=== PATIENT | female | born 1970 | race Caucasian/White ===

== ENCOUNTER 2017-06-19 14:31 | Observation (INO) | payer OTHER ==
--- NOTE | 2017-06-19 14:45 | PDOC ---
History of Present Illness - General History Source: Patient Exam Limitations: No Limitations - History of Present Illness Initial Comments: 06/19/17 15:20 The patient is a 46 year old female with a significant PMH of diabetes, migraines, bulging disc and hernia who presents to the emergency department after a witnessed syncopal episode with associated nausea and two episodes of emesis this morning. The patient reports she has been experiencing confusion, fogginess, and lightheadedness when standing up for the past 7 months. The patient states her PCP told her it may be due to lack of sleep. The patient had a syncopal episode one week ago but did not seek medical evaluation at the time. The patient states she did not sleep last night, but this is usual for her. The patient reports she was walking fine this morning but when she stood up from the chair she felt like "she was stepping on air and collapsed to the ground." The patient sustained a head injury on her forehead and tongue laceration during the syncopal episode. The patient is also complaining of back pain but states this is chronic. The patient denies any alcohol intake. The patient denies chest pain, shortness of breath, and headache. Denies fever, chills, diarrhea and constipation. Denies incontinence, dysuria, frequency, urgency and hematuria. Allergies: NKA Past surgical history: None reported Social history: No reported alcohol, cigarette, or drug use. PCP: Dr. Wilkerson <Adriana Marrero - Last Filed: 06/19/17 17:17> <Avni Caldwell - Last Filed: 06/19/17 18:35> <Justin Braswell - Last Filed: 06/20/17 19:05> - General Chief Complaint: Syncope/Near Syncope Stated Complaint: SYNCOPE Time Seen by Provider: 06/19/17 14:45 Past History <Adriana Marrero - Last Filed: 06/19/17 17:17> <Avni Caldwell - Last Filed: 06/19/17 18:35> - Past Medical History Asthma: No Cancer: No Cardiac Disorders: No Diabetes: Yes (hypoglycemia) Disorders: Yes (POLYCYSTIC OVARY DISEASE) HTN: No Seizures: No Thyroid Disease: No - Surgical History Abdominal Surgery: Yes (UMBILICAL HERNIA REPAIR) Gastric Stapling: Yes (gastric bypass in 2007) GI Surgery: Yes (couple of abdominal surgeries for and hernia repairs) - Reproductive History (#): 5 Para: 3 Polycystic Ovaries: Yes Tubal Ligation: No - Immunization History Immunization Up to Date: Yes - Suicide/Smoking/Psychosocial Hx Smoking Status: No Smoking History: Current every day smoker Have you smoked in the past 12 months: Yes Number of Cigarettes Smoked Daily: 10 Hx Alcohol Use: No Drug/Substance Use Hx: No Hx Substance Use Treatment: No <Justin Braswell - Last Filed: 06/20/17 19:05> - Past Medical History Allergies/Adverse Reactions: Allergies Allergy/AdvReac Type Severity Reaction Status Date / Time No Known Allergies Allergy Verified 06/19/17 14:43 Home Medications: Ambulatory Orders Gabapentin 100 mg PO DAILY 06/19/17 Metformin HCl 500 mg PO DAILY 06/19/17 Acetaminophen/Caffeine/Butalb [Fioricet -] 1 tab PO Q4H PRN 06/20/17 Zolpidem Tartrate [Ambien] 0 mg PO HS 06/20/17 *Physical Exam - Vital Signs Last Vital Signs Temp Pulse Resp BP Pulse Ox 98.7 F 110 H 17 141/91 97 06/19/17 14:43 06/19/17 14:43 06/19/17 14:43 06/19/17 14:43 06/19/17 14:43 - Physical Exam Comments: 06/19/17 15:23 Vitals: Triage vital signs reviewed General Appearance: No acute distress, well nourished, well developed Head: Atraumatic Eyes: Pupils equal reactive round, extraocular movement intact Mouth: (+) Tongue laceration. Neck: Supple; No nuchal rigidity Chest Wall: Nontender Cardiac: Regular rate and rhythm, no murmurs, no rubs, no gallops Lungs: Clear to auscultation bilateral, good air movement bilaterally Abdomen: Soft, nondistended, normal bowel sounds, nontender to palpation Back: (+) Severe low back tenderness. Extremities: (+) 4/5 bilateral lower extremity weakness. No cyanosis, clubbing, or edema Skin: Warm and dry, no rashes or lesions, no rash, no petechiae Neuro: AOX3; Cranial Nerves 2-12 grossly intact, Strength intact to all extremities, Sensation intact to all extremities. Psych: Normal mood, normal affect <Adriana Marrero - Last Filed: 06/19/17 17:17> - Vital Signs Last Vital Signs Temp Pulse Resp BP Pulse Ox 98.2 F 85 18 130/74 99 06/19/17 17:58 06/19/17 17:59 06/19/17 17:58 06/19/17 17:59 06/19/17 17:58 <Avni Caldwell - Last Filed: 06/19/17 18:35> Procedures - Laceration/Wound Repair Left Wound Length: to 2.5 cm (Left Tongue Laceration) Wound Explored: clean, no foreign body present Wound's Depth, Shape: linear Irrigated w/ Saline: Yes Anesthesia: 1% Lidocaine Amount of Anesthetic (ccs): 4 Wound Repaired With: Sutures Suture Size/Type: 5:0, other (Absorbable) Number of Sutures: 4 Layer Closure: Yes <Avni Caldwell - Last Filed: 06/19/17 18:35> Heart Score/ECG Review #1 06/19/17 15:22 EKG performed at [14:56] demonstrates rate of [109], rhythm of [sinus tachycardia], Incomplete right bundle branch block. Inferior infarct, age undetermined. T wave inversion in V3. <Adrinaa Marrero - Last Filed: 06/19/17 17:17> ED Treatment Course - LABORATORY CBC & Chemistry Diagram: 06/19/17 15:00 06/19/17 15:00 - ADDITIONAL ORDERS Additional order review: 06/19/17 15:00 RBC 3.75 MCV 83.8 MCHC 32.5 RDW 22.4 H D MPV 8.4 Neutrophils % 76.9 Lymphocytes % 14.5 D Monocytes % 6.9 Eosinophils % 0.7 Basophils % 1.0 - Medications Given in the ED: ED Medications Discontinued Medications Generic Name Dose Route Start Last Admin Trade Name Freq PRN Reason Stop Dose Admin Sodium Chloride 1,000 ml 06/19/17 14:46 06/19/17 15:07 Normal Saline - IV 06/19/17 14:47 1,000 ml ONCE ONE Administration <Adriana Marrero - Last Filed: 06/19/17 17:17> - LABORATORY CBC & Chemistry Diagram: 06/19/17 15:00 06/19/17 15:00 - ADDITIONAL ORDERS Additional order review: Laboratory Results 06/19/17 06/19/17 06/19/17 15:00 15:00 15:00 Sodium Potassium Chloride Carbon Dioxide Anion Gap BUN Creatinine Creat Clearance w eGFR Random Glucose Calcium Total Bilirubin AST ALT Alkaline Phosphatase Troponin I < 0.02 Total Protein Albumin TSH 6.04 H Free T4 0.96 Alcohol, Quantitative < 5.0 06/19/17 15:00 Sodium 138 Potassium 4.2 Chloride 103 Carbon Dioxide 23 Anion Gap 12 BUN 16 Creatinine 0.7 Creat Clearance w eGFR > 60 Random Glucose 86 Calcium 9.2 Total Bilirubin 0.4 D AST 12 L D ALT 14 D Alkaline Phosphatase 80 Troponin I Total Protein 6.7 Albumin 4.2 TSH Free T4 Alcohol, Quantitative 06/19/17 15:00 RBC 3.75 MCV 83.8 MCHC 32.5 RDW 22.4 H D MPV 8.4 Neutrophils % 76.9 Lymphocytes % 14.5 D Monocytes % 6.9 Eosinophils % 0.7 Basophils % 1.0 - Medications Given in the ED: ED Medications Discontinued Medications Generic Name Dose Route Start Last Admin Trade Name Erikq PRN Reason Stop Dose Admin Lidocaine HCl 15 ml 06/19/17 15:23 06/19/17 18:08 Xylocaine 2% Viscous MM 06/19/17 15:24 15 ml ONCE ONE Administration Sodium Chloride 1,000 ml 06/19/17 14:46 06/19/17 15:07 Normal Saline - IV 06/19/17 14:47 1,000 ml ONCE ONE Administration <Avni Caldwell - Last Filed: 06/19/17 18:35> - LABORATORY CBC & Chemistry Diagram: 06/20/17 07:30 06/20/17 07:30 <Justin Braswell - Last Filed: 06/20/17 19:05> Medical Decision Making - Medical Decision Making 06/19/17 15:23 The patient is a 46 year old female with a significant PMH of diabetes, migraines, bulging disc and hernia who presents to the emergency department after a witnessed syncopal episode with associated nausea and two episodes of emesis this morning. Plan: Labs: CMP, HCG Qual, Troponin, UA CT Scan: HEAD w/o contrast MRI: Lumbar spine MRI w/o contrast Imaging: Lumbar Spine MRI w/o contrast Reported by: Dr. Xiong Reviewed by: Dr. Braswell Impression: A moderate left posterolateral L5-S1 disc herniation is seen which appears mildly increased in size in comparison to a previous MRI study of 2016. There is resultant posterior displacement of the traversing left S1 nerve root. A very small central L4-L5 disc herniation is noted interval change. Interval development of marrow edema is seen within the right L1 and L2 transverse processes with associated contiguous soft tissue edema- ? recent injury/fall. CT evaluation may be considered to evaluate for possible transverse process fractures. 5:17PM Consulted the case with Dr. Quan, Neurosurgery. <Adriana Marrero - Last Filed: 06/19/17 17:17> - Medical Decision Making Syncope versus seizure, patient with large tongue laceration On examination patient with generalized bilateral lower extremity weakness. Has chronic low back pain which she feels is worse since the fall A stat head CT and a stat lumbar spine MRI has been ordered patient taken directly to CT MRI 5 PM case signed out to Dr. Kellogg CT and MRI results pending. Laceration will be sutured by resident MRI findings reviewed with Dr. Quan, No acute intervention needed. Recommends MRI Cervical and thoracic tomorrow. CT Lumbar spine tonight. Re consult if needed 06/19/17 17:25 <Justin Braswell - Last Filed: 06/20/17 19:05> *DC/Admit/Observation/Transfer - Attestations Scribe Attestion: 06/19/17 15:22 Documentation prepared by Adriana Marrero, acting as medical billing and coding specialist for Justin Braswell MD. <Adriana Marrero - Last Filed: 06/19/17 17:17> <Avni Caldwell - Last Filed: 06/19/17 18:35> <Justin Braswell - Last Filed: 06/20/17 19:05> Diagnosis at time of Disposition: Diabetes Syncope Qualifiers: Syncope type: unspecified Qualified Code(s): R55 - Syncope and collapse
[2017-06-19] MEDS ORDERED: SODIUM CHLORIDE 0.9% 1000 ML INFUS.BAG IV ONE (14:46)
[2017-06-19 15:10] LABS: ADD RBC MORPHOLOGY YES; EOS % 0.7 % (0-4.5); HEMATOCRIT 31.4 % (32.4-45.2); HEMOGLOBIN 10.2 GM/dL (10.7-15.3); LYMPH % 14.5 % (8-40); MCH 27.3 pg (25.7-33.7); MCHC 32.5 g/dl (32.0-36.0); MEAN CELL VOLUME 83.8 fl (80-96); MEAN PLT VOLUME 8.4 fl (7.5-11.1); MONO % 6.9 % (3.8-10.2); NEUT % 76.9 % (42.8-82.8); PLATELET COUNT 218 K/MM3 (134-434); RBC 3.75 M/mm3 (3.60-5.2); RDW 22.4 % (11.6-15.6); WHITE BLOOD COUNT 9.7 K/mm3 (4.0-10.0)
[2017-06-19 15:22] VITALS: BMI 23.2
[2017-06-19] MEDS ORDERED: LIDOCAINE VISCOUS 2% ORAL/TOP 100 ML BOTTLE MM ONE (15:23)
[2017-06-19 15:26] LABS: ANISOCYTOSIS 2+
[2017-06-19 15:42] LABS: ALBUMIN 4.2 g/dl (3.4-5.0); ALK PHOS 80 U/L (45-117); ANION GAP 12 (8-16); BILIRUBIN,TOTAL 0.4 mg/dL (0.2-1.0); BLOOD UREA NITROGEN 16 mg/dL (7-18); CALCIUM 9.2 mg/dL (8.5-10.1); CHLORIDE 103 mmol/L (98-107); CO2 23 mmol/L (21-32); CREATININE 0.7 mg/dL (0.55-1.02); GLUCOSE,RANDOM 86 mg/dL (74-106); POTASSIUM 4.2 mmol/L (3.5-5.1); SGOT/AST 12 U/L (15-37); SGPT/ALT 14 U/L (12-78); SODIUM 138 mmol/L (136-145); TOT PROT 6.7 g/dl (6.4-8.2)
[2017-06-19] MEDS ORDERED: LIDOCAINE VISCOUS 2% ORAL/TOP 20 ML UNIT-DOSE CUP ONE (16:57)
--- NOTE | 2017-06-19 19:12 | PDOC ---
*Physical Exam - Vital Signs Last Vital Signs Temp Pulse Resp BP Pulse Ox 98.2 F 85 18 130/74 99 06/19/17 17:58 06/19/17 17:59 06/19/17 17:58 06/19/17 17:59 06/19/17 17:58 <ValdezDanielle Collazo - Last Filed: 06/19/17 19:11> - Vital Signs Last Vital Signs Temp Pulse Resp BP Pulse Ox 98.2 F 85 18 130/74 99 06/19/17 17:58 06/19/17 17:59 06/19/17 17:58 06/19/17 17:59 06/19/17 17:58 <Mabel Ferrell - Last Filed: 06/19/17 20:23> ED Treatment Course - LABORATORY CBC & Chemistry Diagram: 06/19/17 15:00 06/19/17 15:00 - ADDITIONAL ORDERS Additional order review: Laboratory Results 06/19/17 06/19/17 06/19/17 15:00 15:00 15:00 Sodium Potassium Chloride Carbon Dioxide Anion Gap BUN Creatinine Creat Clearance w eGFR Random Glucose Calcium Total Bilirubin AST ALT Alkaline Phosphatase Troponin I < 0.02 Total Protein Albumin TSH 6.04 H Free T4 0.96 Alcohol, Quantitative < 5.0 06/19/17 15:00 Sodium 138 Potassium 4.2 Chloride 103 Carbon Dioxide 23 Anion Gap 12 BUN 16 Creatinine 0.7 Creat Clearance w eGFR > 60 Random Glucose 86 Calcium 9.2 Total Bilirubin 0.4 D AST 12 L D ALT 14 D Alkaline Phosphatase 80 Troponin I Total Protein 6.7 Albumin 4.2 TSH Free T4 Alcohol, Quantitative 06/19/17 15:00 RBC 3.75 MCV 83.8 MCHC 32.5 RDW 22.4 H D MPV 8.4 Neutrophils % 76.9 Lymphocytes % 14.5 D Monocytes % 6.9 Eosinophils % 0.7 Basophils % 1.0 - Medications Given in the ED: ED Medications Discontinued Medications Generic Name Dose Route Start Last Admin Trade Name Freq PRN Reason Stop Dose Admin Lidocaine HCl 15 ml 06/19/17 15:23 06/19/17 18:08 Xylocaine 2% Viscous MM 06/19/17 15:24 15 ml ONCE ONE Administration Sodium Chloride 1,000 ml 06/19/17 14:46 06/19/17 15:07 Normal Saline - IV 06/19/17 14:47 1,000 ml ONCE ONE Administration <Danielle Kellogg - Last Filed: 06/19/17 19:11> - LABORATORY CBC & Chemistry Diagram: 06/19/17 15:00 06/19/17 15:00 - ADDITIONAL ORDERS Additional order review: Laboratory Results 06/19/17 06/19/17 06/19/17 15:00 15:00 15:00 Sodium Potassium Chloride Carbon Dioxide Anion Gap BUN Creatinine Creat Clearance w eGFR Random Glucose Calcium Total Bilirubin AST ALT Alkaline Phosphatase Troponin I < 0.02 Total Protein Albumin TSH 6.04 H Free T4 0.96 Alcohol, Quantitative < 5.0 06/19/17 15:00 Sodium 138 Potassium 4.2 Chloride 103 Carbon Dioxide 23 Anion Gap 12 BUN 16 Creatinine 0.7 Creat Clearance w eGFR > 60 Random Glucose 86 Calcium 9.2 Total Bilirubin 0.4 D AST 12 L D ALT 14 D Alkaline Phosphatase 80 Troponin I Total Protein 6.7 Albumin 4.2 TSH Free T4 Alcohol, Quantitative 06/19/17 15:00 RBC 3.75 MCV 83.8 MCHC 32.5 RDW 22.4 H D MPV 8.4 Neutrophils % 76.9 Lymphocytes % 14.5 D Monocytes % 6.9 Eosinophils % 0.7 Basophils % 1.0 - RADIOLOGY Radiograph Interpretation: 06/19/17 20:23 CT of head without contrast Preliminary Reading by Imaging Inspector Subassembly FINDINGS: The brain parenchymal architecture appears normal, with preservation of the still -white differentiation. There is no acute intracranial hemorrhage, mass effect or midline shift. No abnormal intra-axial or extra-axial fluid collection is seen. The periventricular white matter is unremarkable. The ventricles and basilar cisterns are maintained. The bones of the calvarium and imaged skull base demonstrate no acute abnormality. The imaged paranasal sinuses and mastoid air cells : unremarkable IMPRESSION: Non acute THIS DOCUMENT HAS BEEN ELECTRONICALLY SIGNED Jessica San MD - Medications Given in the ED: ED Medications Discontinued Medications Generic Name Dose Route Start Last Admin Trade Name Freq PRN Reason Stop Dose Admin Lidocaine HCl 15 ml 06/19/17 15:23 06/19/17 18:08 Xylocaine 2% Viscous MM 06/19/17 15:24 15 ml ONCE ONE Administration Sodium Chloride 1,000 ml 06/19/17 14:46 06/19/17 15:07 Normal Saline - IV 06/19/17 14:47 1,000 ml ONCE ONE Administration <Mabel Ferrell - Last Filed: 06/19/17 20:23> *DC/Admit/Observation/Transfer - Discharge Dispostion Admit: Yes <ValdezDanielle Collazo - Last Filed: 06/19/17 19:11> - Attestations Scribe Attestion: 06/19/17 20:23 Documentation prepared by Mabel Ferrell, acting as medical physics professor for Justin Braswell MD. <Mabel Ferrell - Last Filed: 06/19/17 20:23> Diagnosis at time of Disposition: Syncope Qualifiers: Syncope type: unspecified Qualified Code(s): R55 - Syncope and collapse Diabetes Qualifiers: Diabetes mellitus type: type 2 Diabetes mellitus complication status: with unspecified complications Diabetes mellitus extermination supervisor insulin use: without detention use Qualified Code(s): E11.8 - Type 2 diabetes mellitus with unspecified complications
[2017-06-19] MEDS ORDERED: ONDANSETRON 4 MG/2 ML VIAL IVPUSH PRN (19:52)
--- NOTE | 2017-06-19 19:56 | HP ---
CHIEF COMPLAINT: syncope PCP: Rhea HISTORY OF PRESENT ILLNESS: This is a 46 year old female with a significant PMH of DM and migraines who presented s/p syncope today. She states that when she went to get up she felt like she was going to pass out and she hit her face on the doorway. She also reports nausea and emesis after. She admits to a syncopal episode last week but she did not seek care for it. At present she reports feeling a little better but has pain to her tongue and face. ER course was notable for: (1) Normal troponin (2) CT head negative Recent Travel: pt denies PAST MEDICAL HISTORY: DM migraines herniated lumbar disc PCOS PAST SURGICAL HISTORY: gastric bypass 2008 umbilical hernia repair mult hernia repairs Social History: Smokin/2 ppd x 22 years Alcohol: pt denies Drugs: pt denies Family History: father s/p open heart surgery-unsure for what, CVA x 2 mother s/p BrCA 2 brothers alive and well Allergies No Known Allergies Allergy (Verified 06/19/17 14:43) HOME MEDICATIONS: 3 Medication Instructions Recorded Gabapentin 100 mg PO DAILY 06/19/17 Metformin HCl 500 mg PO DAILY 06/19/17 Vit B12 IM [id number] lyrica 50mg HS REVIEW OF SYSTEMS CONSTITUTIONAL: Absent: fever, chills, diaphoresis, generalized weakness, malaise, loss of appetite, weight change HEENT: Absent: rhinorrhea, nasal congestion, throat pain, throat swelling, difficulty swallowing, mouth swelling, ear pain, eye pain, visual changes CARDIOVASCULAR: syncope Absent: chest pain, palpitations, irregular heart rate, lightheadedness, peripheral edema RESPIRATORY: Absent: cough, shortness of breath, dyspnea with exertion, orthopnea, wheezing, stridor, hemoptysis GASTROINTESTINAL: nausea, vomiting Absent: abdominal pain, abdominal distension, diarrhea, constipation, melena, hematochezia GENITOURINARY: Absent: dysuria, frequency, urgency, hesitancy, hematuria, flank pain, genital pain MUSCULOSKELETAL: Absent: myalgia, arthralgia, joint swelling, back pain, neck pain SKIN: Absent: rash, itching, pallor HEMATOLOGIC/IMMUNOLOGIC: Absent: easy bleeding, easy bruising, lymphadenopathy, frequent infections ENDOCRINE: Absent: unexplained weight gain, unexplained weight loss, heat intolerance, cold intolerance NEUROLOGIC: Absent: headache, focal weakness or paresthesias, dizziness, unsteady gait, seizure, mental status changes, bladder or bowel incontinence PSYCHIATRIC: Absent: anxiety, depression, suicidal or homicidal ideation, hallucinations. PHYSICAL EXAMINATION Vital Signs - 24 hr 3 06/19/17 06/19/17 06/19/17 14:43 17:58 17:59 Temperature 98.7 F 98.2 F Pulse Rate 110 H Pulse Rate [ 90 Apical] Pulse Rate [ 85 Left side Sitting] Pulse Rate [ 87 Left side Standing] Respiratory 17 18 Rate Blood Pressure 141/91 Blood Pressure 134/89 [Left Arm] Blood Pressure 130/74 [Left side Sitting] Blood Pressure 133/89 [Left side Standing] O2 Sat by Pulse 97 99 Oximetry (%) GENERAL: Awake, alert, and fully oriented, in no acute distress. HEAD: Normal with no signs of trauma. EYES: Pupils equal, round and reactive to light, extraocular movements intact, sclera anicteric, conjunctiva clear. No lid lag. EARS, NOSE, THROAT: Ears normal, nares patent, oropharynx clear without exudates. Moist mucous membranes. swelling to left cheek, lip and tongue. tongue laceration repaired, sutures in place NECK: Normal range of motion, supple without lymphadenopathy, JVD, or masses. LUNGS: Breath sounds equal, clear to auscultation bilaterally. No wheezes, and no crackles. No accessory muscle use. HEART: Regular rate and rhythm, normal S1 and S2 without murmur, rub or gallop. ABDOMEN: Soft, nontender, not distended, normoactive bowel sounds, no guarding, no rebound, no masses. No hepatomegaly or splenomegaly. MUSCULOSKELETAL: Normal range of motion at all joints. No bony deformities or tenderness. No CVA tenderness. + tenderness lumbar spine UPPER EXTREMITIES: 2+ pulses, warm, well-perfused. No cyanosis. No clubbing. No peripheral edema. LOWER EXTREMITIES: 2+ pulses, warm, well-perfused. No calf tenderness. No peripheral edema. NEUROLOGICAL: Cranial nerves II-XII intact. Normal speech. Normal gait. PSYCHIATRIC: Cooperative. Good eye contact. Appropriate mood and affect. SKIN: Warm, dry, normal turgor, no rashes or lesions noted, normal capillary refill. Laboratory Results - last 24 hr 3 06/19/17 06/19/17 06/19/17 15:00 15:00 15:00 WBC 9.7 RBC 3.75 Hgb 10.2 L D Hct 31.4 L D MCV 83.8 MCH 27.3 D MCHC 32.5 RDW 22.4 H D Plt Count 218 MPV 8.4 Neutrophils % 76.9 Lymphocytes % 14.5 D Monocytes % 6.9 Eosinophils % 0.7 Basophils % 1.0 Hypochromia 2+ Anisocytosis 2+ Sodium 138 Potassium 4.2 Chloride 103 Carbon Dioxide 23 Anion Gap 12 BUN 16 Creatinine 0.7 Creat Clearance w eGFR > 60 Random Glucose 86 Calcium 9.2 Total Bilirubin 0.4 D AST 12 L D ALT 14 D Alkaline Phosphatase 80 Troponin I < 0.02 Total Protein 6.7 Albumin 4.2 TSH 6.04 H Free T4 0.96 Alcohol, Quantitative < 5.0 ECG Normal sinus rhythm Vent rate 109, QTC 484 T wave flattening lead 3, aVF, T wave inversion lead v3 Radiology Results EXAM: CT HEAD WITHOUT IV CONTRAST TECHNIQUE: Axial images from the skull base to the vertex. Bone and soft tissue windows were reviewed.Multi-planar reconstructions from the axial data set: Yes REASON FOR EXAM: Syncope, trauma COMPARISON: None. THIS IS A PRELIMINARY REPORT FROM IMAGING RADIOGRAPHER CARDIAC CATHETERIZATION FINDINGS: The brain parenchymal architecture appears normal, with preservation of the still -white differentiation There is no acute intracranial hemorrhage, mass effect or midline shift. No abnormal intra-axial or extra-axial fluid collection is seen. The periventricular white matter is unremarkable. The ventricles and basilar cisterns are maintained. The bones of the calvarium and imaged skull base demonstrate no acute abnormality. The imaged paranasal sinuses and mastoid air cells : unremarkable IMPRESSION: Non acute THIS DOCUMENT HAS BEEN ELECTRONICALLY SIGNED Jessica San MD 06/19/2017 18:26 EST Imaging: Lumbar Spine MRI w/o contrast Reported by: Dr. Xiong Impression: A moderate left posterolateral L5-S1 disc herniation is seen which appears mildly increased in size in comparison to a previous MRI study of 2016. There is resultant posterior displacement of the traversing left S1 nerve root. A very small central L4-L5 disc herniation is noted interval change. Interval development of marrow edema is seen within the right L1 and L2 transverse processes with associated contiguous soft tissue edema- ? recent injury/fall. CT evaluation may be considered to evaluate for possible transverse process fractures. ASSESSMENT/PLAN: 46yF with PMH DM, migraines, lumbar disc herniation and PCOS presented to the ED s/p syncope. Syncope - trop neg x 1, trend x 2 more - monitor on tele to r/o arrhythmia - echocardiogram Back pain s/p fall - MRI negative for acute findings, consider CT if continued pain - ED d/w Dr. Espinosa who recommended MRI thoracic and cervical spine DM - cont home metformin - BGM AC/HS with novolog sliding scale DVT PPX - chemoprophylaxis deferred as anticipated LOS <48h FEN - received 1L NS in ED, tolerating po, cont same - bmp in am - diabetic diet Dispo: pt requires overnight cardiac monitoring for management of her emergent condition. Visit type - Emergency Visit Emergency Visit: Yes ED Registration Date: 06/19/17 Care time: The patient presented to the Emergency Department on the above date and was hospitalized for further evaluation of their emergent condition. - New Patient This patient is new to me today: Yes Date on this admission: 06/19/17 - Critical Care Critical Care patient: No
[2017-06-19] MEDS ORDERED: ACETAMINOPHEN 325 MG TABLET (FP) PO PRN (21:22)
[2017-06-19] MEDS ORDERED: PREGABALIN 50 MG CAPSULE ONE (23:23)
[2017-06-19] MEDS: PREGABALIN 50 MG CAPSULE PO SCH (23:25)
[2017-06-19] MEDS: INSULIN SLIDING SCALE (NOVOLOG) 1 VIAL SQ SCH (23:36)
[2017-06-20 02:11] LABS: URINE APPEARANCE SLCLOUDY; URINE BILIRUBIN NEGATIVE (NEGATIVE); URINE BLOOD NEGATIVE (NEGATIVE); URINE COLOR YELLOW; URINE GLUCOSE (UA) NEGATIVE (NEGATIVE); URINE KETONE NEGATIVE (NEGATIVE); URINE LEUK ESTERASE NEGATIVE (NEGATIVE); URINE NITRITE NEGATIVE (NEGATIVE); URINE PROTEIN NEGATIVE (NEGATIVE); URINE UROBILINOGEN NEGATIVE mg/dL (0.2-1.0)
[2017-06-20 02:14] LABS: HCG,QUALITATIVE URINE NEGATIVE
[2017-06-20 02:21] LABS: COCAINE, UR NEGATIVE ng/ml (CUTOFF=300); METHADONE, UR NEGATIVE ng/ml (CUTOFF=300); OPIATES, URI NEGATIVE ng/ml (CUTOFF=300); PHENCYCLIDINE,URINE NEGATIVE ng/ml (CUTOFF=25); URINE AMPHETAMINES NEGATIVE ng/ml (CUTOFF=500); URINE BARBITURATES NEGATIVE ng/ml (CUTOFF=200); URINE BENZODIAZEPINES NEGATIVE ng/ml (CUTOFF=200)
[2017-06-20 07:42] LABS: HEMATOCRIT 32.7 % (32.4-45.2); HEMOGLOBIN 10.3 GM/dL (10.7-15.3); MCH 26.7 pg (25.7-33.7); MCHC 31.6 g/dl (32.0-36.0); MEAN CELL VOLUME 84.6 fl (80-96); MEAN PLT VOLUME 7.9 fl (7.5-11.1); PLATELET COUNT 65 K/MM3 (134-434); RBC 3.87 M/mm3 (3.60-5.2); RDW 22.4 % (11.6-15.6); WHITE BLOOD COUNT 9.3 K/mm3 (4.0-10.0)
[2017-06-20 07:51] LABS: ADD RBC MORPHOLOGY YES
[2017-06-20] MEDS: INSULIN SLIDING SCALE (NOVOLOG) 1 VIAL SQ SCH ×4 (08:00→21:42)
[2017-06-20] MEDS: metFORMIN HCL 500 MG TABLET (FP) PO SCH (08:00)
[2017-06-20] MEDS ORDERED: metFORMIN HCL 500 MG TABLET (FP) ONE (08:15)
[2017-06-20] MEDS ORDERED: ACETAMINOPHEN 325 MG TABLET (FP) ONE (08:19)
[2017-06-20 08:26] LABS: ANION GAP 4 (8-16); BLOOD UREA NITROGEN 14 mg/dL (7-18); CALCIUM 8.3 mg/dL (8.5-10.1); CHLORIDE 106 mmol/L (98-107); CO2 27 mmol/L (21-32); CREATININE 0.6 mg/dL (0.55-1.02); GLUCOSE,RANDOM 82 mg/dL (74-106); MAGNESIUM 2.1 mg/dL (1.8-2.4); POTASSIUM 4.1 mmol/L (3.5-5.1); SODIUM 137 mmol/L (136-145)
[2017-06-20 08:33] LABS: PHOSPHOROUS 3.9 mg/dL (2.5-4.9)
[2017-06-20 09:12] LABS: ANISOCYTOSIS 2+; PLATELET ESTIMATE DECREASED
[2017-06-20] MEDS ORDERED: GABAPENTIN 100 MG CAPSULE (FP) ONE (10:05)
[2017-06-20] MEDS: GABAPENTIN 100 MG CAPSULE (FP) PO SCH (10:05)
--- NOTE | 2017-06-20 10:25 | CONSULT ---
Consult - text type - Consultation Consultation Note: Neurology CHIEF COMPLAINT: Back Pain, Syncope HISTORY OF PRESENT ILLNESS: This is a 46 year old female with a significant PMH of DM and migraines who presented s/p syncope. She states that when she went to get up she felt like she was going to pass out and she hit her face on the doorway. She also reports nausea and emesis after. She admits to a syncopal episode last week but she did not seek care for it. At present she reports feeling a little better but does have ongoing low back pain and completed MRI L spine as recommended by NSGy according to notes. There was increased L5/S1 disc herniation along with small L4/L5 herniation. A CT L spine also was completed and showed L1, L2, and L3 transverse process fracture. She also has underlying migraine headaches without aura that occur sporadically but stable at this time. Recent Travel: pt denies PAST MEDICAL HISTORY: DM migraines herniated lumbar disc PCOS PAST SURGICAL HISTORY: gastric bypass 2008 umbilical hernia repair mult hernia repairs Social History: Smokin/2 ppd x 22 years Alcohol: pt denies Drugs: pt denies Family History: father s/p open heart surgery-unsure for what, CVA x 2 mother s/p BrCA 2 brothers alive and well Allergies No Known Allergies Allergy (Verified 06/19/17 14:43) HOME MEDICATIONS: 3 Medication Instructions Recorded Gabapentin 100 mg PO DAILY 06/19/17 Metformin HCl 500 mg PO DAILY 06/19/17 Vit B12 IM [id number] lyrica 50mg HS REVIEW OF SYSTEMS CONSTITUTIONAL: Absent: fever, chills, diaphoresis, generalized weakness, malaise, loss of appetite, weight change HEENT: Absent: rhinorrhea, nasal congestion, throat pain, throat swelling, difficulty swallowing, mouth swelling, ear pain, eye pain, visual changes CARDIOVASCULAR: syncope Absent: chest pain, palpitations, irregular heart rate, lightheadedness, peripheral edema RESPIRATORY: Absent: cough, shortness of breath, dyspnea with exertion, orthopnea, wheezing, stridor, hemoptysis GASTROINTESTINAL: nausea, vomiting Absent: abdominal pain, abdominal distension, diarrhea, constipation, melena, hematochezia GENITOURINARY: Absent: dysuria, frequency, urgency, hesitancy, hematuria, flank pain, genital pain MUSCULOSKELETAL: Absent: myalgia, arthralgia, joint swelling, back pain, neck pain SKIN: Absent: rash, itching, pallor HEMATOLOGIC/IMMUNOLOGIC: Absent: easy bleeding, easy bruising, lymphadenopathy, frequent infections ENDOCRINE: Absent: unexplained weight gain, unexplained weight loss, heat intolerance, cold intolerance NEUROLOGIC: Absent: headache, focal weakness or paresthesias, dizziness, unsteady gait, seizure, mental status changes, bladder or bowel incontinence PSYCHIATRIC: Absent: anxiety, depression, suicidal or homicidal ideation, hallucinations. Vital Signs Temperature 98.4 F 06/20/17 07:03 Pulse Rate 82 06/20/17 07:03 Respiratory Rate 18 06/20/17 07:03 Blood Pressure 119/74 06/20/17 07:03 O2 Sat by Pulse Oximetry (%) 97 06/20/17 07:03 GENERAL: Awake, alert, and fully oriented, in no acute distress. HEAD: Normal with no signs of trauma. EYES: Pupils equal, round and reactive to light, extraocular movements intact, sclera anicteric, conjunctiva clear. No lid lag. EARS, NOSE, THROAT: Ears normal, nares patent, oropharynx clear without exudates. Moist mucous membranes. swelling to left cheek, lip and tongue. tongue laceration repaired, sutures in place NECK: Normal range of motion, supple without lymphadenopathy, JVD, or masses. LUNGS: Breath sounds equal, clear to auscultation bilaterally. No wheezes, and no crackles. No accessory muscle use. HEART: Regular rate and rhythm, normal S1 and S2 without murmur, rub or gallop. ABDOMEN: Soft, nontender, not distended, normoactive bowel sounds, no guarding, no rebound, no masses. No hepatomegaly or splenomegaly. MUSCULOSKELETAL: Normal range of motion at all joints. No bony deformities or tenderness. No CVA tenderness. + tenderness lumbar spine UPPER EXTREMITIES: 2+ pulses, warm, well-perfused. No cyanosis. No clubbing. No peripheral edema. LOWER EXTREMITIES: 2+ pulses, warm, well-perfused. No calf tenderness. No peripheral edema. NEUROLOGICAL: Cranial nerves II-XII intact. Normal speech. Normal gait. PSYCHIATRIC: Cooperative. Good eye contact. Appropriate mood and affect. SKIN: Warm, dry, normal turgor, no rashes or lesions noted, normal capillary refill. Laboratory Results - last 24 hr 3 06/19/17 06/19/17 06/19/17 15:00 15:00 15:00 WBC 9.7 RBC 3.75 Hgb 10.2 L D Hct 31.4 L D MCV 83.8 MCH 27.3 D MCHC 32.5 RDW 22.4 H D Plt Count 218 MPV 8.4 Neutrophils % 76.9 Lymphocytes % 14.5 D Monocytes % 6.9 Eosinophils % 0.7 Basophils % 1.0 Hypochromia 2+ Anisocytosis 2+ Sodium 138 Potassium 4.2 Chloride 103 Carbon Dioxide 23 Anion Gap 12 BUN 16 Creatinine 0.7 Creat Clearance w eGFR > 60 Random Glucose 86 Calcium 9.2 Total Bilirubin 0.4 D AST 12 L D ALT 14 D Alkaline Phosphatase 80 Troponin I < 0.02 Total Protein 6.7 Albumin 4.2 TSH 6.04 H Free T4 0.96 Alcohol, Quantitative < 5.0 ECG Normal sinus rhythm Vent rate 109, QTC 484 T wave flattening lead 3, aVF, T wave inversion lead v3 Radiology Results EXAM: CT HEAD WITHOUT IV CONTRAST No acute changes Imaging: Lumbar Spine MRI w/o contrast Reported by: Dr. Xiong Impression: A moderate left posterolateral L5-S1 disc herniation is seen which appears mildly increased in size in comparison to a previous MRI study of 2016. There is resultant posterior displacement of the traversing left S1 nerve root. A very small central L4-L5 disc herniation is noted interval change. Interval development of marrow edema is seen within the right L1 and L2 transverse processes with associated contiguous soft tissue edema- ? recent injury/fall. CT Lumbar spine with L1, L2, L3 transverse process fracture ASSESSMENT/PLAN: 46 year old female with a significant PMH of DM and migraines who presented s/p syncope. She states that when she went to get up she felt like she was going to pass out and she hit her face on the doorway. She also reports nausea and emesis after. She admits to a syncopal episode last week but she did not seek care for it. At present she reports feeling a little better but does have ongoing low back pain and completed MRI L spine as recommended by NSGy according to notes. There was increased L5/S1 disc herniation along with small L4/L5 herniation. A CT L spine also was completed and showed L1, L2, and L3 transverse process fracture. She also has underlying migraine headaches without aura that occur sporadically but stable at this time. NSGY follow up. Pain mgmt as needed. Fall precautions. Physical therapy. May require short term rehab but will have to monitor clinical course. Cardiac monitoring, followup telemetry recording for syncope. Cardiology follow up.
[2017-06-20] MEDS ORDERED: SUMAtriptan SUCCINATE 50 MG TABLET PO ONE (12:45)
[2017-06-20] MEDS ORDERED: SUMAtriptan SUCCINATE 50 MG TABLET PO SCH (12:45)
[2017-06-20] MEDS ORDERED: SUMAtriptan SUCCINATE 50 MG TABLET ONE (12:58)
[2017-06-20] MEDS: ACETAMINOPHEN/CAFFEINE/BUTALBITAL 1 TAB PO PRN (13:02)
--- NOTE | 2017-06-20 15:14 | PN ---
Progress Note, Physician Chief Complaint: AWAKE STILL HAS EPISODES OF DIZZINESS NOTES AND RECORDS REVIEWED - Current Medication List Current Medications: Active Medications Acetaminophen (Tylenol -) 650 mg PO Q4H PRN PRN Reason: FEVER OR PAIN Acetaminophen/Butalbital/Caffeine (Fioricet -) 1 tablet PO Q6H PRN PRN Reason: FEVER OR PAIN Last Admin: 06/20/17 13:02 Dose: 1 tablet Gabapentin (Neurontin -) 100 mg PO DAILY [facility] Last Admin: 06/20/17 10:05 Dose: 100 mg Insulin Aspart (Novolog Vial Sliding Scale -) 1 vial SQ HS [facility] PRN Reason: Protocol Last Admin: 06/19/17 23:36 Dose: Not Given Insulin Aspart (Novolog Vial Sliding Scale -) 1 vial SQ TIDAC [facility] PRN Reason: Protocol Last Admin: 06/20/17 11:30 Dose: Not Given Metformin HCl (Glucophage -) 500 mg PO DAILY@0700 [facility] Last Admin: 06/20/17 08:00 Dose: 500 mg Ondansetron HCl (Zofran Injection) 4 mg IVPUSH Q6H PRN PRN Reason: NAUSEA Pregabalin (Lyrica -) [address] [facility] Last Admin: 06/19/17 23:25 Dose: 50 mg - Objective Vital Signs: Vital Signs Temperature 98.2 F 06/20/17 11:26 Pulse Rate 75 06/20/17 11:26 Respiratory Rate 18 06/20/17 11:26 Blood Pressure 124/77 06/20/17 11:26 O2 Sat by Pulse Oximetry (%) 98 06/20/17 12:01 Constitutional: Yes: Mild Distress Eyes: Yes: WNL HENT: Yes: WNL Neck: Yes: WNL Cardiovascular: Yes: WNL Respiratory: Yes: WNL Gastrointestinal: Yes: WNL Genitourinary: Yes: WNL Musculoskeletal: Yes: Back Pain, Muscle Weakness Extremities: Yes: WNL Edema: No Peripheral Pulses WNL: Yes Integumentary: Yes: WNL Wound/Incision: Yes: Clean/Dry Neurological: Yes: Unsteady Gait, Weakness ...Motor Strength: LLE, RLE Psychiatric: Yes: Other Labs: CBC, BMP 06/20/17 07:30 06/20/17 07:30 Problem List - Problems (1) Lumbar radiculopathy Code(s): M54.16 - RADICULOPATHY, LUMBAR REGION (2) Diabetes Code(s): E11.9 - TYPE 2 DIABETES MELLITUS WITHOUT COMPLICATIONS Qualifiers: Diabetes mellitus type: type 2 Diabetes mellitus complication status: with unspecified complications Diabetes mellitus longwall machine operator helper insulin use: without care home use Qualified Code(s): E11.8 - Type 2 diabetes mellitus with unspecified complications (3) Syncope Code(s): R55 - SYNCOPE AND COLLAPSE Qualifiers: Syncope type: unspecified Qualified Code(s): R55 - Syncope and collapse Assessment/Plan SYNCOPE WORKUP ECHO CAROTID CARDIOLOGY AND NEUROLOGY EVAL PT EVAL SSI ACHS
--- NOTE | 2017-06-20 15:19 | CON.CARD ---
Consult Consult Specialty:: Cardiology Reason for Consultation:: syncope - History of Present Illness Chief Complaint: syncope History of Present Illness: 46 year old with a pmhx of dm, migraines, and herniated discs presenting with syncope. Was home and stood up and was walking and felt dizzy and fell to ground with head injury. Reports syncope 1 week ago. Says she has been having episodes of confusion for last 6 months or so and has times when she does not recall how she gets certain places. Started on paxil recently for restlessness. No complaints at this time. No chest pain, dyspnea, or palpitations. No pnd, orthopnea, or edema. Denies any alcohol or drug use. + tobacco use - History Source History Provided By: Patient, Medical Record - Alcohol/Substance Use Hx Alcohol Use: No - Smoking History Smoking history: Current every day smoker Have you smoked in the past 12 months: Yes Aproximately how many cigarettes per day: 10 Home Medications - Allergies Allergies/Adverse Reactions: Allergies Allergy/AdvReac Type Severity Reaction Status Date / Time No Known Allergies Allergy Verified 06/19/17 14:43 - Home Medications Home Medications: Ambulatory Orders Gabapentin 100 mg PO DAILY 06/19/17 Metformin HCl 500 mg PO DAILY 06/19/17 Acetaminophen/Caffeine/Butalb [Fioricet -] 1 tab PO Q4H PRN 06/20/17 Zolpidem Tartrate [Ambien] 0 mg PO HS 06/20/17 Vital Signs: Vital Signs Temperature 98.2 F 06/20/17 11:26 Pulse Rate 75 06/20/17 11:26 Respiratory Rate 18 06/20/17 11:26 Blood Pressure 124/77 06/20/17 11:26 O2 Sat by Pulse Oximetry (%) 98 06/20/17 12:01 Constitutional: Yes: No Distress Neck: Yes: Supple Respiratory: Yes: CTA Bilaterally Gastrointestinal: Yes: Normal Bowel Sounds, Soft Cardiovascular: Yes: Regular Rate and Rhythm JVD: No Carotid Bruit: No PMI: Non-Displaced Heart Sounds: Yes: S1, S2 Murmur: No: Systolic Murmur Edema: No - Other Data Labs, Other Data: CBC, BMP 06/20/17 07:30 06/20/17 07:30 Troponin, BNP 06/19/17 06/19/17 06/20/17 15:00 21:35 07:30 Troponin I < 0.02 < 0.02 < 0.02 06/20/17 13:12 Troponin I < 0.02 Troponin, BNP 06/19/17 06/19/17 06/20/17 15:00 21:35 07:30 Troponin I < 0.02 < 0.02 < 0.02 06/20/17 13:12 Troponin I < 0.02 Imaging - Results Chest X-ray: Report Reviewed Assessment/Plan 46 year old with a pmhx of dm, migraines, and herniated discs presenting with syncope. Was home and stood up and was walking and felt dizzy and fell to ground with head injury. Reports syncope 1 week ago. Says she has been having episodes of confusion for last 6 months or so and has times when she does not recall how she gets certain places. Started on paxil recently for restlessness. No complaints at this time. No chest pain, dyspnea, or palpitations. No pnd, orthopnea, or edema. Denies any alcohol or drug use. 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 Will follow up
[2017-06-20] MEDS ORDERED: oxyCODONE HCL 5 MG TABLET PO ONE (18:36)
--- NOTE | 2017-06-20 19:58 | CONSULT ---
Consult - text type - Consultation Consultation Note: Neurosurgery Consultation Asked to see this 46 year old female who presented to the [facility] ER yesterday after an episode where she had a brief loss of consciousness. Unclear whether this was secondary to syncope (cardiac evaluation ongoing), seizure (no observed convulsions, however, patient bit tongue badly enough to start copious bleeding and required sutures and patient also has history of remote seizure) or hypoglycemia (patient reports significant weight loss and episodes of hypoglycemia). Head CT was unremarkable. Patient describes pain in her coccyx and lower back, but does not describe radicular pain. MRI Lumbar demonstrated a Right sided L5S1 disc herniation which is slightly larger than when she was imaged in September 2016. There was edema near the transverse processes with limited axial images and CT was recommended. CT demonstrates Right L1, L2 and L3 transverse process fractures. I asked about a recent fall and the patient indicated that the episode yesterday was not associated with a fall, but "I know how I got those [fractures]" She did not elaborate on the nature of that injury. PLAN -If seizures are suspected (negative cardiac/metabolic syncope workup), MRI Brain may be considered. -The Lumbar fractures of the L1-L3 Right sided Transverse processes do not require surgical stabilzation, however, the patient may heal faster and achieve some relief from pain with a TLSO brace. I recommend a period of bracing for 3 months. The patient may bring one of her 2 braces that she has at home from previous injuries. -The herniated Lumbar disc at L5S1 is not apparently symptomatic and is not new. If she were to manifest radicular pain, JOSETTE may be considered. In the interim, bracing may hasten recovery. -coccygeal pain which persists for more than 2-3 months may be evaluated with further imaging and diagnostic testing on a semi-elective basis, however, it is hoped that this will not be necessary.
[2017-06-20] MEDS: PREGABALIN 50 MG CAPSULE PO SCH (22:38)
[2017-06-21] MEDS ORDERED: MELATONIN 5 MG TABLETS PO ONE (00:15)
[2017-06-21] MEDS: ACETAMINOPHEN/CAFFEINE/BUTALBITAL 1 TAB PO PRN ×2 (00:40→09:40)
[2017-06-21] MEDS ORDERED: oxyCODONE HCL 5 MG TABLET PO ONE (02:28)
[2017-06-21] MEDS: metFORMIN HCL 500 MG TABLET (FP) PO SCH (06:31)
[2017-06-21] MEDS: INSULIN SLIDING SCALE (NOVOLOG) 1 VIAL SQ SCH ×2 (06:31→12:12)
[2017-06-21 08:25] VITALS: BP 142/78; PULSE 110; TEMP 98.5
--- NOTE | 2017-06-21 09:33 | EKG ---
Test Reason : Blood Pressure : / mmHG Vent. Rate : 078 BPM Atrial Rate : 078 BPM P-R Int : 142 ms QRS Dur : 096 ms QT Int : 366 ms P-R-T Axes : 064 -05 013 degrees QTc Int : 417 ms NORMAL SINUS RHYTHM INCOMPLETE RIGHT BUNDLE BRANCH BLOCK BORDERLINE ECG Confirmed by MD Desiree, Thai ([id number]) on 06/21/2017 9:33:40 AM Referred By: Stephanie LEAHY Confirmed By:Thai Ramírez MD
[2017-06-21] MEDS: GABAPENTIN 100 MG CAPSULE (FP) PO SCH (09:41)
--- NOTE | 2017-06-21 10:07 | PN ---
Progress Note (short form) - Note Progress Note: Neurology CHIEF COMPLAINT: Back Pain, Syncope HISTORY OF PRESENT ILLNESS: This is a 46 year old female with a significant PMH of DM and migraines who presented s/p syncope. She states that when she went to get up she felt like she was going to pass out and she hit her face on the doorway. She also reports nausea and emesis after. She admits to a syncopal episode last week but she did not seek care for it. At present she reports feeling a little better but does have ongoing low back pain and completed MRI L spine as recommended by NSGy according to notes. There was increased L5/S1 disc herniation along with small L4/L5 herniation. A CT L spine also was completed and showed L1, L2, and L3 transverse process fracture. She also has underlying migraine headaches without aura that occur sporadically but stable at this time. NSGY note reviewed and did not recommend further surigical intervention. Can consider JOSETTE if radiculopathy presents. Recommended TLSO brace that may allow stabilization of fracture. Carotid doppler reivewed and without acute changes. Echo also with normal LV motion and function. Active Medications Acetaminophen (Tylenol -) 650 mg PO Q4H PRN PRN Reason: FEVER OR PAIN Last Admin: 06/20/17 16:54 Dose: 650 mg Acetaminophen/Butalbital/Caffeine (Fioricet -) 1 tablet PO Q6H PRN PRN Reason: FEVER OR PAIN Last Admin: 06/21/17 09:40 Dose: 1 tablet Gabapentin (Neurontin -) 100 mg PO DAILY [facility] Last Admin: 06/21/17 09:41 Dose: 100 mg Insulin Aspart (Novolog Vial Sliding Scale -) 1 vial SQ HS [facility] PRN Reason: Protocol Last Admin: 06/20/17 21:42 Dose: Not Given Insulin Aspart (Novolog Vial Sliding Scale -) 1 vial SQ TIDAC [facility] PRN Reason: Protocol Last Admin: 06/21/17 06:31 Dose: Not Given Metformin HCl (Glucophage -) 500 mg PO DAILY@0700 [facility] Last Admin: 06/21/17 06:31 Dose: 500 mg Ondansetron HCl (Zofran Injection) 4 mg IVPUSH Q6H PRN PRN Reason: NAUSEA Pregabalin (Lyrica -) 50 mg PO HS [facility] Last Admin: 06/20/17 22:38 Dose: 50 mg Vital Signs Temperature 98.5 F 06/21/17 08:23 Pulse Rate 110 H 06/21/17 08:23 Respiratory Rate 16 06/21/17 08:23 Blood Pressure 142/78 06/21/17 08:23 O2 Sat by Pulse Oximetry (%) 95 06/21/17 04:00 GENERAL: Awake, alert, and fully oriented, in no acute distress. HEAD: Normal with no signs of trauma. EYES: Pupils equal, round and reactive to light, extraocular movements intact, sclera anicteric, conjunctiva clear. No lid lag. EARS, NOSE, THROAT: Ears normal, nares patent, oropharynx clear without exudates. Moist mucous membranes. swelling to left cheek, lip and tongue. tongue laceration repaired, sutures in place NECK: Normal range of motion, supple without lymphadenopathy, JVD, or masses. LUNGS: Breath sounds equal, clear to auscultation bilaterally. No wheezes, and no crackles. No accessory muscle use. HEART: Regular rate and rhythm, normal S1 and S2 without murmur, rub or gallop. ABDOMEN: Soft, nontender, not distended, normoactive bowel sounds, no guarding, no rebound, no masses. No hepatomegaly or splenomegaly. MUSCULOSKELETAL: Normal range of motion at all joints. No bony deformities or tenderness. No CVA tenderness. + tenderness lumbar spine UPPER EXTREMITIES: 2+ pulses, warm, well-perfused. No cyanosis. No clubbing. No peripheral edema. LOWER EXTREMITIES: 2+ pulses, warm, well-perfused. No calf tenderness. No peripheral edema. NEUROLOGICAL: Cranial nerves II-XII intact. Normal speech. Moving extremities grossly, sensory intact, gait deferred PSYCHIATRIC: Cooperative. Good eye contact. Appropriate mood and affect. SKIN: Warm, dry, normal turgor, no rashes or lesions noted, normal capillary refill. CBCD WBC 9.3 K/mm3 (4.0-10.0) 06/20/17 07:30 RBC 3.87 M/mm3 (3.60-5.2) 06/20/17 07:30 Hgb 10.3 GM/dL (10.7-15.3) L 06/20/17 07:30 Hct 32.7 % (32.4-45.2) 06/20/17 07:30 MCV 84.6 fl (80-96) 06/20/17 07:30 MCHC 31.6 g/dl (32.0-36.0) L 06/20/17 07:30 RDW 22.4 % (11.6-15.6) H 06/20/17 07:30 Plt Count 65 K/MM3 (134-434) L D 06/20/17 07:30 MPV 7.9 fl (7.5-11.1) 06/20/17 07:30 CMP Sodium 137 mmol/L (136-145) 06/20/17 07:30 Potassium 4.1 mmol/L (3.5-5.1) 06/20/17 07:30 Chloride 106 mmol/L (98-107) 06/20/17 07:30 Carbon Dioxide 27 mmol/L (21-32) 06/20/17 07:30 Anion Gap 4 (8-16) L 06/20/17 07:30 BUN 14 mg/dL (7-18) 06/20/17 07:30 Creatinine 0.6 mg/dL (0.55-1.02) 06/20/17 07:30 Creat Clearance w eGFR > 60 (>60) 06/19/17 15:00 Calcium 8.3 mg/dL (8.5-10.1) L 06/20/17 07:30 Total Bilirubin 0.4 mg/dL (0.2-1.0) D 06/19/17 15:00 AST 12 U/L (15-37) L D 06/19/17 15:00 ALT 14 U/L (12-78) D 06/19/17 15:00 Alkaline Phosphatase 80 U/L (45-117) 06/19/17 15:00 Total Protein 6.7 g/dl (6.4-8.2) 06/19/17 15:00 Albumin 4.2 g/dl (3.4-5.0) 06/19/17 15:00 Radiology Results EXAM: CT HEAD WITHOUT IV CONTRAST No acute changes Imaging: Lumbar Spine MRI w/o contrast Reported by: Dr. Xiong Impression: A moderate left posterolateral L5-S1 disc herniation is seen which appears mildly increased in size in comparison to a previous MRI study of 2016. There is resultant posterior displacement of the traversing left S1 nerve root. A very small central L4-L5 disc herniation is noted interval change. Interval development of marrow edema is seen within the right L1 and L2 transverse processes with associated contiguous soft tissue edema- ? recent injury/fall. CT Lumbar spine with L1, L2, L3 transverse process fracture CD and Echo reviewed ASSESSMENT/PLAN: 46 year old female with a significant PMH of DM and migraines who presented s/p syncope. She states that when she went to get up she felt like she was going to pass out and she hit her face on the doorway. She also reports nausea and emesis after. She admits to a syncopal episode last week but she did not seek care for it. At present she reports feeling a little better but does have ongoing low back pain and completed MRI L spine as recommended by NSGy according to notes. There was increased L5/S1 disc herniation along with small L4/L5 herniation. A CT L spine also was completed and showed L1, L2, and L3 transverse process fracture. She also has underlying migraine headaches without aura that occur sporadically but stable at this time. NSGY note reviewed and did not recommend further surigical intervention. Can consider JOSETTE if radiculopathy presents. Recommended TLSO brace that may allow stabilization of fracture. Carotid doppler reivewed and without acute changes. Echo also with normal LV motion and function. Pain mgmt as needed. Fall precautions. Physical therapy. Cardiac monitoring, followup telemetry recording for syncope.
--- NOTE | 2017-06-21 10:26 | PN ---
Progress Note (short form) - Note Progress Note: Patient comfortable in bed and states that she is feeling "a little bit better" Most pains resolved except intermittent Right lower extremity radicular pain. Full motor strength in Bilateral lower extremities. Agree with Dr. Hill that JOSETTE may be considered if pain persists in Right leg. For now, would recommend bracing for fractures and Lumbar HNP which increases in radicular pain with weight bearing. Patient not receiving narcotics, but benefited from a single dose of oxycodone. She may benefit from a 3-7 day course of oxycodone if her pain is not improved with time and bracing. No acute Neurosurgical intervention planned.
[2017-06-21] MEDS ORDERED: oxyCODONE HCL 5 MG TABLET PO PRN (11:18)
--- NOTE | 2017-06-21 11:24 | DS ---
Physical Examination Vital Signs: Vital Signs Temperature 98.5 F 06/21/17 08:23 Pulse Rate 110 H 06/21/17 08:23 Respiratory Rate 16 06/21/17 08:23 Blood Pressure 142/78 06/21/17 08:23 O2 Sat by Pulse Oximetry (%) 95 06/21/17 04:00 Findings/Remarks: FEELS GOOD DENIES DIZZINESS OR FALLS Constitutional: Yes: No Distress Eyes: Yes: WNL HENT: Yes: WNL Neck: Yes: WNL Cardiovascular: Yes: WNL Respiratory: Yes: WNL Gastrointestinal: Yes: WNL Renal/: Yes: WNL Musculoskeletal: Yes: WNL Extremities: Yes: WNL Edema: No Peripheral Pulses WNL: Yes Integumentary: Yes: WNL Wound/Incision: Yes: Clean/Dry Neurological: Yes: WNL ...Motor Strength: WNL Psychiatric: Yes: WNL Labs: CBC, BMP 06/20/17 07:30 06/20/17 07:30 Discharge Summary Reason For Visit: SYNCOPE DIABETES MELLITUS Current Active Problems Diabetes (Acute) Lumbar radiculopathy (Acute) Syncope (Acute) Procedures: Principal: CT SCAN Hospital Course: ADMITTED DIZZINESS, WEAKNESS, SYNCOPE, WORKUP NEGATIVE FOR CARDIAC DISEASE ON TELEMETRY, HOWEVER SIGNIFICANT LUMBAR DISEASE WILL NEED OUTPATIENT SPINAL INJECTION Condition: Improved - Instructions Diet, Activity, Other Instructions: SEE DR WILKERSON IN 1-2 DAYS SPINAL EPIDURAL Referrals: Frederick Wilkerson [Primary Care Provider] - Disposition: HOME - Home Medications Comprehensive Discharge Medication List: Ambulatory Orders Gabapentin 100 mg PO DAILY 06/19/17 Metformin HCl 500 mg PO DAILY 06/19/17 Acetaminophen/Caffeine/Butalb [Fioricet -] 1 tab PO Q4H PRN 06/20/17 Zolpidem Tartrate [Ambien] 0 mg PO HS 06/20/17 Acetaminophen [Tylenol .Regular Strength -] 650 mg PO Q4H PRN tablet 06/21/17 Acetaminophen/Caffeine/Butalb [Fioricet -] 1 tablet PO Q6H PRN tablet MDD 4 09/03 Metformin HCl [Glucophage -] 500 mg PO DAILY@0700 tablet 06/21/17 Sumatriptan Succinate [Imitrex -] 50 mg PO ONCE tablet 06/21/17
--- NOTE | 2017-06-21 13:22 | EKG ---
Test Reason : Blood Pressure : / mmHG Vent. Rate : 109 BPM Atrial Rate : 109 BPM P-R Int : 142 ms QRS Dur : 106 ms QT Int : 360 ms P-R-T Axes : 061 -02 033 degrees QTc Int : 484 ms SINUS TACHYCARDIA POSSIBLE LEFT ATRIAL ENLARGEMENT INCOMPLETE RIGHT BUNDLE BRANCH BLOCK INFERIOR INFARCT , AGE UNDETERMINED ABNORMAL ECG WHEN COMPARED WITH ECG OF 19-MAY-2016 12:59, VENT. RATE HAS INCREASED BY 39 BPM INFERIOR INFARCT IS NOW PRESENT QT HAS LENGTHENED Confirmed by MATTHIAS HOPSON MD ([id number]) on 06/21/2017 1:22:20 PM Referred By: Confirmed By:MATTHIAS HOPSON MD
== END 2017-06-21 14:05 | disposition home or self-care (01) ==
LOC: JER 14:31 → JERBED 19:12 → J4W 06-20 15:22
PROVIDERS: ADMIT Internal Medicine; ATTEND Family Medicine
PROC: 0CQ7XZZ Repair Tongue, External Approach (ICD-10-PCS; principal; 2017-06-19)
PROC: 3E0337Z Introduction of Electrolytic and Water Balance Substance into Peripheral Vein, Percutaneous Approach (ICD-10-PCS; 2017-06-19)
DX: R55 Syncope and collapse (principal); S01.512A Laceration without foreign body of oral cavity, initial encounter; E11.8 Type 2 diabetes mellitus with unspecified complications; E28.2 Polycystic ovarian syndrome; F17.210 Nicotine dependence, cigarettes, uncomplicated; Z79.84 Long term (current) use of oral hypoglycemic drugs; Z98.84 Bariatric surgery status; M54.9 Dorsalgia, unspecified; G89.29 Other chronic pain; G43.909 Migraine, unspecified, not intractable, without status migrainosus; M51.17 Intervertebral disc disorders with radiculopathy, lumbosacral region; S32.019A Unspecified fracture of first lumbar vertebra, initial encounter for closed fracture; S32.029A Unspecified fracture of second lumbar vertebra, initial encounter for closed fracture; S32.039A Unspecified fracture of third lumbar vertebra, initial encounter for closed fracture; W18.39XA Other fall on same level, initial encounter; Y93.89 Activity, other specified; Y92.89 Other specified places as the place of occurrence of the external cause
CPT/HCPCS: 36415; 41251; 70450-TC; 72131-TC; 72148-TC; 80048; 80053; 80307; 81003; 82550; 83735; 84100; 84439; 84443; 84481; 84484; 84703; 85025; 93005; 93010; 93306-TC; 93880-TC; 99285-25; G0378

== ENCOUNTER 2017-06-23 19:28 | Emergency (ER) | payer OTHER ==
[2017-06-23 19:33] VITALS: BP 146/81; PULSE 112; TEMP 98.6; BMI 23.2
--- NOTE | 2017-06-23 20:10 | PDOC ---
Suture Removal/Wound Check HPI - History of Present Illness Chief Complaint: Revisit,Wound Recheck Stated Complaint: MOUTH INJURY Time Seen by Provider: 06/23/17 20:08 History Source: Yes: Patient Exam Limitations: Yes: No Limitations [facility] Date of Last ED visit: 06/19/17 - Previous ED Treatment Type of procedure performed on last visit: Yes: Laceration Repair Tetanus Immunization: Yes: Up to Date - Onset of Previous Treatment Date of Occurence: 06/19/17 Past History - Past Medical History Allergies/Adverse Reactions: Allergies Allergy/AdvReac Type Severity Reaction Status Date / Time No Known Allergies Allergy Verified 06/23/17 19:30 Home Medications: Ambulatory Orders Gabapentin 100 mg PO DAILY 06/19/17 Metformin HCl 500 mg PO DAILY 06/19/17 Acetaminophen/Caffeine/Butalb [Fioricet -] 1 tab PO Q4H PRN 06/20/17 Zolpidem Tartrate [Ambien] 0 mg PO HS 06/20/17 Acetaminophen [Tylenol .Regular Strength -] 650 mg PO Q4H PRN tablet 06/21/17 Acetaminophen/Caffeine/Butalb [Fioricet -] 1 tablet PO Q6H PRN tablet MDD 4 09/03 Metformin HCl [Glucophage -] 500 mg PO DAILY@0700 tablet 06/21/17 Sumatriptan Succinate [Imitrex -] 50 mg PO ONCE tablet 06/21/17 Asthma: No Cancer: No Cardiac Disorders: No COPD: No Diabetes: Yes (hypoglycemia) Disorders: Yes (POLYCYSTIC OVARY DISEASE) HTN: No Seizures: No Thyroid Disease: No - Surgical History Abdominal Surgery: Yes (UMBILICAL HERNIA REPAIR) Gastric Stapling: Yes (gastric bypass in 2007) GI Surgery: Yes (couple of abdominal surgeries for and hernia repairs) - Reproductive History (#): 5 Para: 3 Polycystic Ovaries: Yes Tubal Ligation: No - Immunization History Immunization Up to Date: Yes - Suicide/Smoking/Psychosocial Hx Smoking Status: No Smoking History: Current some day smoker Have you smoked in the past 12 months: Yes Number of Cigarettes Smoked Daily: 10 Information on smoking cessation initiated: No Hx Alcohol Use: No Drug/Substance Use Hx: No Hx Substance Use Treatment: No Medical Decision Making - Medical Decision Making A/P: 46 y/o afebrile female here to have her tongue wound checked. She had a seizure 5 days ago and bit her tongue. It was repaired with sutures but she feels like it is opening up. She denies f/c or purulent discharge from the wound. She does admit the swelling is improving and she is gargling after every meal. The wound appears to be healing well. The left side of the tongue has very minimal swelling and no erythema. No purulent discharge noted. The posterior portion of the wound is dehiscing but the sutures remain in place. Assured the patient that the wound is healing well and that the tongue will heal itself on its own. Pt instructed to return to the ER with any worsening or concerning symptoms. SHe does have a follow up with her PCP next week and was encouraged to have him reevaluate the wound. The patient verbalizes understanding of all instructions, has no further questions and is awaiting discharge. *DC/Admit/Observation/Transfer Diagnosis at time of Disposition: Visit for wound check - Discharge Dispostion Disposition: HOME Condition at time of disposition: Good - Referrals Referrals: Frederick Wilkerson [Primary Care Provider] - - Patient Instructions Printed Discharge Instructions: How to Care for a Surgical Wound Additional Instructions: Discharge Instructions: -continue to gargle after every meal -follow up wit doctor next week -Return to the emergency room with any worsening or concerning symptoms - Post Discharge Activity
== END 2017-06-23 21:10 | disposition home or self-care (01) ==
LOC: JERFT 19:28
DX: Z09 Encounter for follow-up examination after completed treatment for conditions other than malignant neoplasm (principal); E11.9 Type 2 diabetes mellitus without complications; Z79.84 Long term (current) use of oral hypoglycemic drugs; E28.2 Polycystic ovarian syndrome
CPT/HCPCS: 99281-25

== ENCOUNTER 2017-06-25 20:00 | Emergency (ER) | payer OTHER ==
[2017-06-25 20:10] VITALS: BP 122/82; PULSE 112; TEMP 98.8; BMI 23.2
--- NOTE | 2017-06-25 21:14 | PDOC ---
Suture Removal/Wound Check HPI - History of Present Illness Chief Complaint: Wound Stated Complaint: PAIN Time Seen by Provider: 06/25/17 20:29 Date of Last ED visit: 06/19/17 - Previous ED Treatment Type of procedure performed on last visit: Yes: Laceration Repair (Patient returns to ED for dehiscence of tongue lac repair. Discussed with patient that at this time oral surgery would need to be consulted.) Past History - Past Medical History Allergies/Adverse Reactions: Allergies Allergy/AdvReac Type Severity Reaction Status Date / Time No Known Allergies Allergy Verified 06/23/17 19:30 Home Medications: Ambulatory Orders Gabapentin 100 mg PO DAILY 06/19/17 Metformin HCl 500 mg PO DAILY 06/19/17 Acetaminophen/Caffeine/Butalb [Fioricet -] 1 tab PO Q4H PRN 06/20/17 Zolpidem Tartrate [Ambien] 0 mg PO HS 06/20/17 Acetaminophen [Tylenol .Regular Strength -] 650 mg PO Q4H PRN tablet 06/21/17 Acetaminophen/Caffeine/Butalb [Fioricet -] 1 tablet PO Q6H PRN tablet MDD 4 09/03 Metformin HCl [Glucophage -] 500 mg PO DAILY@0700 tablet 06/21/17 Sumatriptan Succinate [Imitrex -] 50 mg PO ONCE tablet 06/21/17 Benzocaine [Orabase] 11.9 gm MM TID #1 paste..g. 06/25/17 Asthma: No Cancer: No Cardiac Disorders: No COPD: No Diabetes: Yes (hypoglycemia) Disorders: Yes (POLYCYSTIC OVARY DISEASE) HTN: No Seizures: No Thyroid Disease: No - Surgical History Abdominal Surgery: Yes (UMBILICAL HERNIA REPAIR) Gastric Stapling: Yes (gastric bypass in 2007) GI Surgery: Yes (couple of abdominal surgeries for and hernia repairs) - Reproductive History (#): 5 Para: 3 Polycystic Ovaries: Yes Tubal Ligation: No - Immunization History Immunization Up to Date: Yes - Suicide/Smoking/Psychosocial Hx Smoking Status: No Smoking History: Current some day smoker Have you smoked in the past 12 months: Yes Number of Cigarettes Smoked Daily: 6 Information on smoking cessation initiated: No Hx Alcohol Use: No Drug/Substance Use Hx: No Hx Substance Use Treatment: No *DC/Admit/Observation/Transfer Diagnosis at time of Disposition: Visit for wound check - Discharge Dispostion Disposition: HOME Condition at time of disposition: Stable Admit: No - Prescriptions Prescriptions: Benzocaine [Orabase] 11.9 gm MM TID #1 paste..g. - Referrals Referrals: Lenny Mckeon [Staff Physician] - Sergo Poe [Staff Physician] - Los Ford MD [Non Staff, Medical] - - Patient Instructions Additional Instructions: Please use medication as prescribed. As discussed, you will need to follow up with an oral surgeon if your pain is unbearable or if you would like a revision of your tongue repair. If you develop any fever, chills, nausea, vomiting, diarrhea, or worsening pain, please return to the ER. - Post Discharge Activity
== END 2017-06-25 21:17 | disposition home or self-care (01) ==
LOC: JERFT 20:00 → JER 20:00 → JERFT 21:17
DX: T81.33XA Disruption of traumatic injury wound repair, initial encounter (principal)
CPT/HCPCS: 99281-25

== ENCOUNTER 2017-07-28 09:20 | Inpatient (IN) | payer OTHER ==
[2017-07-28 10:34] LABS: BASO % 0.4 % (0-2.0); EOS % 0.8 % (0-4.5); HEMATOCRIT 36.8 % (32.4-45.2); HEMOGLOBIN 11.6 GM/dL (10.7-15.3); LYMPH % 8.6 % (8-40); MCH 25.6 pg (25.7-33.7); MCHC 31.5 g/dl (32.0-36.0); MEAN CELL VOLUME 81.5 fl (80-96); MEAN PLT VOLUME 8.1 fl (7.5-11.1); MONO % 7.4 % (3.8-10.2); NEUT % 82.8 % (42.8-82.8); PLATELET COUNT 362 K/MM3 (134-434); RBC 4.52 M/mm3 (3.60-5.2); RDW 21.8 % (11.6-15.6); WHITE BLOOD COUNT 14.5 K/mm3 (4.0-10.0)
[2017-07-28 11:13] LABS: ALBUMIN 3.7 g/dl (3.4-5.0); ANION GAP 10 (8-16); BLOOD UREA NITROGEN 11 mg/dL (7-18); CALCIUM 8.5 mg/dL (8.5-10.1); CHLORIDE 109 mmol/L (98-107); CO2 22 mmol/L (21-32); CREATININE 0.6 mg/dL (0.55-1.02); GLUCOSE,RANDOM 82 mg/dL (74-106); POTASSIUM 3.5 mmol/L (3.5-5.1); SGOT/AST 7 U/L (15-37); SGPT/ALT 13 U/L (12-78); SODIUM 141 mmol/L (136-145)
[2017-07-28 11:15] LABS: ALK PHOS 114 U/L (45-117); BILIRUBIN,TOTAL 0.5 mg/dL (0.2-1.0); TOT PROT 7.5 g/dl (6.4-8.2)
[2017-07-28] MEDS ORDERED: morphine CARPU-JECT 4 MG/1 ML DISP.SYRIN IVPUSH ONE ×2 (11:47→16:35)
[2017-07-28] MEDS ORDERED: VANCOMYCIN 1,000 MG in DEXTROSE 5%-WATER - 250 ML IVPB ONE ×2 (11:51→23:30)
--- NOTE | 2017-07-28 11:53 | PDOC ---
History of Present Illness - General History Source: Patient Exam Limitations: No Limitations - History of Present Illness Initial Comments: 07/28/17 12:17 The patient is a 46 year old female with a significant PMH of diabetes, migraines (on Fioricet), and PCOS who presents to the emergency department with 2 weeks of right upper arm pain and 3 days of a right axilla abscess. She reports developing an abscess 3 days ago with associated RUE erythema and swelling. The patient describes her pain as localized in the right axilla with radiation to the right elbow, 10/10 in severity. The patient denies itching. She reports applying tiger balm to no relief. The patient notes she has had decreased sleep secondary to her pain. She also notes she sustained a cut over her left eyelid about 3 days ago which has scabbed over. She denies LOC. The patient denies chest pain, shortness of breath, headache and dizziness. Denies fever, chills, nausea, vomit, diarrhea and constipation. Denies dysuria, frequency, urgency and hematuria. Allergies: NKA Past surgical history: Umbilical hernia repair. Gastric bypass (2008). Social history: Current someday smoker. No reported alcohol or drug use. PCP: Dr. Frederick Wilkerson <Edmond Tran - Last Filed: 07/28/17 15:50> <Marianela Reilly - Last Filed: 07/31/17 13:45> - General Chief Complaint: Abscess Boil Stated Complaint: RASH, WOUND Time Seen by Provider: 07/28/17 11:01 Past History <Edmond Tran - Last Filed: 07/28/17 15:50> - Past Medical History Asthma: No Cancer: No Cardiac Disorders: No COPD: No Diabetes: Yes (hypoglycemia) Disorders: Yes (POLYCYSTIC OVARY DISEASE) HTN: No Seizures: No Thyroid Disease: No - Surgical History Abdominal Surgery: Yes (UMBILICAL HERNIA REPAIR) Gastric Stapling: Yes (gastric bypass in 2007) GI Surgery: Yes (couple of abdominal surgeries for and hernia repairs) - Reproductive History (#): 5 Para: 3 Polycystic Ovaries: Yes Tubal Ligation: No - Immunization History Immunization Up to Date: Yes - Suicide/Smoking/Psychosocial Hx Smoking Status: No Smoking History: Current some day smoker Have you smoked in the past 12 months: Yes Number of Cigarettes Smoked Daily: 6 Information on smoking cessation initiated: Yes 'Breaking Loose' booklet given: 07/28/17 Hx Alcohol Use: No Drug/Substance Use Hx: No Substance Use Type: None Hx Substance Use Treatment: No <Marianela Reilly - Last Filed: 07/31/17 13:45> - Past Medical History Allergies/Adverse Reactions: Allergies Allergy/AdvReac Type Severity Reaction Status Date / Time No Known Allergies Allergy Verified 07/28/17 09:38 Home Medications: Ambulatory Orders Gabapentin 100 mg PO DAILY 06/19/17 Zolpidem Tartrate [Ambien] 0 mg PO HS 06/20/17 Acetaminophen/Caffeine/Butalb [Fioricet -] 1 tablet PO Q6H PRN tablet MDD 4 09/03 Sumatriptan Succinate [Imitrex -] 50 mg PO ONCE tablet 06/21/17 metFORMIN HCL [Glucophage -] 500 mg PO DAILY@0700 tablet 06/21/17 Review of Systems - Review of Systems Able to Perform ROS?: Yes Comments:: 07/28/17 12:18 GENERAL/CONSTITUTIONAL: No fever or chills. No weakness. HEAD, EYES, EARS, NOSE AND THROAT: No change in vision. No ear pain or discharge. No sore throat. CARDIOVASCULAR: No chest pain or shortness of breath. RESPIRATORY: No cough, wheezing, or hemoptysis. GASTROINTESTINAL: No nausea, vomiting, diarrhea or constipation. GENITOURINARY: No dysuria, frequency, or change in urination. MUSCULOSKELETAL: No joint or muscle swelling or pain. No neck or back pain. SKIN: (+) Right axilla abscess with associated erythema and edema. (+) Scabbed over laceration over left eyelid. NEUROLOGIC: No headache, vertigo, loss of consciousness, or change in strength/ sensation. ENDOCRINE: No increased thirst. No abnormal weight change. HEMATOLOGIC/LYMPHATIC: No anemia, easy bleeding, or history of blood clots. ALLERGIC/IMMUNOLOGIC: No hives or skin allergy. <Edmond Tran - Last Filed: 07/28/17 15:50> *Physical Exam - Vital Signs Last Vital Signs Temp Pulse Resp BP Pulse Ox 98.0 F 120 H 18 107/79 100 07/28/17 09:39 07/28/17 09:39 07/28/17 09:39 07/28/17 09:39 02/09/18 09:39 <Edmond Tran - Last Filed: 07/28/17 15:50> - Vital Signs Last Vital Signs Temp Pulse Resp BP Pulse Ox 98.0 F 120 H 18 107/79 100 07/28/17 09:39 07/28/17 09:39 07/28/17 09:39 07/28/17 09:39 07/28/17 09:39 - Physical Exam Comments: GENERAL: Awake, alert, and fully oriented. Appears uncomfortable. HEAD: No signs of trauma EYES: PERRLA, EOMI, sclera anicteric, conjunctiva clear ENT: Auricles normal inspection, hearing grossly normal, nares patent, oropharynx clear without exudates. Moist mucosa NECK: Normal ROM, supple, no lymphadenopathy, JVD, or masses LUNGS: Breath sounds equal, clear to auscultation bilaterally. No wheezes, and no crackles HEART: Regular rate and rhythm, normal S1 and S2, no murmurs, rubs or gallops ABDOMEN: Soft, nontender, normoactive bowel sounds. No guarding, no rebound. No masses EXTREMITIES: RUE with erythema to the upper arm, axilla. +Tender, fluctuant area just anterior to the axilla. +Swelling over the R anterior deltoid. Remainder of extremities with normal range of motion, no edema. No clubbing or cyanosis. No cords, erythema, or tenderness NEUROLOGICAL: Cranial nerves II through XII grossly intact. Normal speech, normal gait SKIN: Warm, Dry, normal turgor, no rashes or lesions noted. <Marianela Reilly - Last Filed: 07/31/17 13:45> Procedures - Incision and Drainage I&D Site: Right: Axilla (just anterior to the axilla) Anesthesia: 1% Lidocaine Volume(ml): 2 Blade Size: 11 Attempts: 1 Complications: none Dressing: Yes Progress: 07/28/17 11:53 Area anesthetized with 1% lidocaine no epi, ring block. Incised with #11 blade with expression of moderate amt purulent material. Loculations were broken. Dressed with sterile gauze. Patient tolerated well. Minimal blood loss. <Marianela Reilly - Last Filed: 07/31/17 13:45> Heart Score/ECG Review - ECG Impressions Comment:: EKG read 11:00- Sinus tach 103 bpm, no acute ST/T changes <Marianela Reilly - Last Filed: 07/31/17 13:45> ED Treatment Course - LABORATORY CBC & Chemistry Diagram: 07/28/17 10:09 07/28/17 10:09 - ADDITIONAL ORDERS Additional order review: Laboratory Results 07/28/17 10:09 Sodium 141 Potassium 3.5 Chloride 109 H Carbon Dioxide 22 Anion Gap 10 BUN 11 Creatinine 0.6 Creat Clearance w eGFR > 60 Random Glucose 82 Calcium 8.5 Total Bilirubin 0.5 D AST 7 L ALT 13 Alkaline Phosphatase 114 Total Protein 7.5 Albumin 3.7 07/28/17 10:09 RBC 4.52 MCV 81.5 MCHC 31.5 L RDW 21.8 H MPV 8.1 Neutrophils % 82.8 Lymphocytes % 8.6 D Monocytes % 7.4 Eosinophils % 0.8 Basophils % 0.4 - Consult/PCP Time Called: 15:50 (Spoke with Dr. Chavez who admitted this pt. ) Case discussed with personal care physician: Cheyanne Chavez <Edmond Tran - Last Filed: 07/28/17 15:50> - LABORATORY CBC & Chemistry Diagram: 07/31/17 07:51 07/31/17 07:51 - ADDITIONAL ORDERS Additional order review: 07/28/17 10:09 RBC 4.52 MCV 81.5 MCHC 31.5 L RDW 21.8 H MPV 8.1 Neutrophils % 82.8 Lymphocytes % 8.6 D Monocytes % 7.4 Eosinophils % 0.8 Basophils % 0.4 <Marianela Reilly - Last Filed: 07/31/17 13:45> Medical Decision Making - Medical Decision Making Abscess was drained in the ED, but the swelling to the upper arm was concerning for possible infection tracking into the arm. D/w Dr. Chavez, requested Drs. Carpenter/Sarah for surgical evaluation. I discussed with Dr. Smith, who evaluated the patient and reviewed the ultrasound findings. Agreed with plan for IV abx, will continue to follow. Will admit to Dr. Chavez based on the significant cellulitis. He has asked that hospitalist do admission orders, I have endorsed to Dr. Sultana. <Marianela Reilly - Last Filed: 07/31/17 13:45> *DC/Admit/Observation/Transfer - Attestations Scribe Attestion: 07/28/17 12:18 Documentation prepared by Edmond Tran, acting as medical scheduler for Marianela Reilly MD. <Edmond Tran - Last Filed: 07/28/17 15:50> - Discharge Dispostion Admit: Yes <Marianela Reilly - Last Filed: 07/31/17 13:45> Diagnosis at time of Disposition: Abscess, Cellulitis of right arm - Discharge Dispostion Condition at time of disposition: Stable
[2017-07-28] MEDS ORDERED: VANCOMYCIN 1 GRAM (PRE-DOCKED) 1,000 MG/250 ML BAG IVPB ONE ×2 (12:09→23:19)
[2017-07-28] MEDS ORDERED: MORPHINE SULFATE 10 MG/1 ML *VIAL ONE ×2 (12:09→16:37)
--- NOTE | 2017-07-28 14:00 | EKG ---
Test Reason : Blood Pressure : / mmHG Vent. Rate : 103 BPM Atrial Rate : 103 BPM P-R Int : 120 ms QRS Dur : 090 ms QT Int : 332 ms P-R-T Axes : 038 039 036 degrees QTc Int : 434 ms SINUS TACHYCARDIA INCOMPLETE RBBB Confirmed by SIDNEY YARBROUGH MD ([id number]) on 07/28/2017 2:00:44 PM Referred By: Confirmed By:SIDNEY YARBROUGH MD
[2017-07-28] MEDS ORDERED: IBUPROFEN 400 MG TABLET (FP) PO ONE (15:18)
--- NOTE | 2017-07-28 17:26 | CONSULT ---
Consult Consult Specialty:: general surgery Referred by:: darlene doe - ED Reason for Consultation:: right arm cellulitis - History of Present Illness Chief Complaint: right arm redness and swelling History of Present Illness: 46 yo female with PMH DM type 2 presents with an abscess on her right axilla. She states that it started as what she thought was a "pimple" 2 weeks ago but yesterday became much larger, inflamed and red. It was drained in the emergency department and we were called to assess and provide wound care follow- up. he range of motion id limited by the tenderness. She denies fever and chills. She has no history of hidradenitis. 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) Musculoskeletal: Yes: Chronic low back pain Endocrine: Yes: Diabetes Mellitus - Past Surgical History Past Surgical History: Yes: Bariatric Surgery - Alcohol/Substance Use Hx Alcohol Use: No - Smoking History Smoking history: Current some day smoker Have you smoked in the past 12 months: Yes Aproximately how many cigarettes per day: 6 - Social History Usual Living Arrangement: With Child History of Recent Travel: No Home Medications - Allergies Allergies/Adverse Reactions: Allergies Allergy/AdvReac Type Severity Reaction Status Date / Time No Known Allergies Allergy Verified 07/28/17 09:38 - Home Medications Home Medications: Ambulatory Orders Gabapentin 100 mg PO DAILY 06/19/17 Zolpidem Tartrate [Ambien] 0 mg PO HS 06/20/17 Acetaminophen/Caffeine/Butalb [Fioricet -] 1 tablet PO Q6H PRN tablet MDD 4 09/03 Sumatriptan Succinate [Imitrex -] 50 mg PO ONCE tablet 06/21/17 metFORMIN HCL [Glucophage -] 500 mg PO DAILY@0700 tablet 06/21/17 Review of Systems - Review of Systems Constitutional: denies: Chills, Fever, Unintentional Wgt. Loss HENT: denies: Difficult Swallowing, Throat Pain Cardiovascular: denies: Chest Pain, Palpitations Respiratory: denies: Cough, SOB Gastrointestinal: denies: Abdominal Pain, Constipation, Diarrhea Genitourinary: reports: Discharge, Dysuria Musculoskeletal: reports: Extremity Pain (right arm, axilla) Integumentary: denies: Lesions, Lump Neurological: reports: Headache. denies: Change in LOC, Syncope, Tremors Endocrine: denies: Unexplained Weight Gain, Unexplained Weight Loss Hematology/Lymphatic: denies: Easily Bruised, Excessive Bleeding Psychiatric: denies: Anxiety, Depression Physical Exam Vital Signs: Vital Signs Temperature 99.9 F H 07/28/17 14:23 Pulse Rate 106 H 07/28/17 14:23 Respiratory Rate 20 07/28/17 14:23 Blood Pressure 130/101 07/28/17 14:23 O2 Sat by Pulse Oximetry (%) 97 07/28/17 14:23 Vital Signs Period Temp Pulse Resp BP Sys/Momin Pulse Ox Last 24 Hr 98.0 F-100.6 F 106-120 18-20 107-130/79-101 97-100 Constitutional: Yes: Well Nourished, No Distress, Calm Eyes: Yes: Conjunctiva Clear, EOM Intact HENT: Yes: Atraumatic, Normocephalic Neck: Yes: Supple, Trachea Midline Cardiovascular: Yes: Regular Rate and Rhythm, S1, S2. No: Murmur Respiratory: Yes: Regular, CTA Bilaterally Gastrointestinal: Yes: Normal Bowel Sounds, Soft. No: Tenderness ...Rectal Exam: Yes: Deferred Renal/: No: CVA Tenderness - Left, CVA Tenderness - Right Extremities: Yes: Erythema (RUE anterior axilla [id number]), Other (tender to touch on skin of right axilla anterior border. 2 - 1cm crutiate incisons made). No: Calf Tenderness, Cool, Cyanosis Edema: Yes Integumentary: Yes: Erythema (Right arm as described) Neurological: Yes: Alert, Oriented Psychiatric: Yes: Alert, Oriented Labs: CBC, BMP 07/28/17 10:09 07/28/17 10:09 Imaging - Results Ultrasound: Report Reviewed, Image Reviewed (no clear fluid collection seen) Problem List - Problems (1) Hidradenitis suppurativa of right axilla Assessment/Plan: 46yo female PMH inclding diabetes type 2, PCOS presents with right arm axillary abscess s/p I&D in ED Bedside I&D of right axillary abscess 07/29/2017 neli erythema daily local wound care with packing broad spectrum empiric IV antibiotics ID consult f/u cultures right arm elevation glycemic control adequate analgesia repeat labs Will follow Code(s): L73.2 - HIDRADENITIS SUPPURATIVA (2) Cellulitis of right arm Code(s): L03.113 - CELLULITIS OF RIGHT UPPER LIMB (3) Abscess Code(s): L02.91 - CUTANEOUS ABSCESS, UNSPECIFIED (4) Diabetes Code(s): E11.9 - TYPE 2 DIABETES MELLITUS WITHOUT COMPLICATIONS Qualifiers: Diabetes mellitus type: type 2 Diabetes mellitus complication status: with unspecified complications Diabetes mellitus intermediate school teacher insulin use: without intermediate school teacher use Qualified Code(s): E11.8 - Type 2 diabetes mellitus with unspecified complications (5) Lumbar radiculopathy Code(s): M54.16 - RADICULOPATHY, LUMBAR REGION (6) Peripheral edema Code(s): R60.9 - EDEMA, UNSPECIFIED
[2017-07-28] MEDS ORDERED: ACETAMINOPHEN 325 MG TABLET (FP) ONE (17:30)
[2017-07-28] MEDS ORDERED: ACETAMINOPHEN 325 MG TABLET (FP) PO ONE (17:30)
[2017-07-28] MEDS ORDERED: PIPERACILLIN/TAZOB 3.375 GM/50 ML PRE-DOCKED IVPB SCH (18:00)
[2017-07-28] MEDS: PIPERACILLIN/TAZOB 3.375 GM 3.375 GM in DEXTROSE 5%-WATER - 100 ML IVPB SCH (18:58)
[2017-07-28] MEDS ORDERED: MORPHINE SULFATE 10 MG/1 ML *VIAL IVPUSH ONE (20:25)
[2017-07-28] MEDS ORDERED: ACETAMINOPHEN 325 MG TABLET (FP) PO PRN (20:38)
[2017-07-28 20:39] VITALS: BMI 24.9
[2017-07-28] MEDS ORDERED: ACETAMINOPHEN/CAFFEINE/BUTALBITAL 1 TAB PO PRN (20:43)
[2017-07-28] MEDS ORDERED: ZOLPIDEM TARTRATE 5 MG TABLET PO ONE (22:00)
--- NOTE | 2017-07-28 22:20 | HP ---
CHIEF COMPLAINT: abscess PCP: Rhea HISTORY OF PRESENT ILLNESS: This is a 46 year old female with a significant past medical history of DM2 who presented to the ED with an abscess on her left axilla. She states that it started as what she thought was a "pimple" 2 weeks ago but yesterday became much larger, inflamed and red. Of note she has been having R shoulder pain on ROM as well. ER course was notable for: (1) WBC 14.5 (2) I&D Recent Travel: pt denies PAST MEDICAL HISTORY: DM, migraine, PCOS PAST SURGICAL HISTORY: umb hernia repair Social History: Smokin cig/day Alcohol: pt denies Drugs: pt denies Family History: mother with DM2, BrCA father with DM2, CABG 2 brothers ok 3 kids ok Allergies No Known Allergies Allergy (Verified 07/28/17 09:38) HOME MEDICATIONS: 3 Medication Instructions Recorded Gabapentin 100 mg PO DAILY 06/19/17 Zolpidem Tartrate [Ambien] 0 mg PO HS 06/20/17 Acetaminophen/Caffeine/Butalb 1 tablet PO Q6H PRN tablet MDD 4 06/21/17 [Fioricet -] Sumatriptan Succinate [Imitrex -] 50 mg PO ONCE tablet 06/21/17 metFORMIN HCL [Glucophage -] 500 mg PO DAILY@0700 tablet 06/21/17 REVIEW OF SYSTEMS CONSTITUTIONAL: Absent: fever, chills, diaphoresis, generalized weakness, malaise, loss of appetite, weight change HEENT: Absent: rhinorrhea, nasal congestion, throat pain, throat swelling, difficulty swallowing, mouth swelling, ear pain, eye pain, visual changes CARDIOVASCULAR: Absent: chest pain, syncope, palpitations, irregular heart rate, lightheadedness , peripheral edema RESPIRATORY: Absent: cough, shortness of breath, dyspnea with exertion, orthopnea, wheezing, stridor, hemoptysis GASTROINTESTINAL: Absent: abdominal pain, abdominal distension, nausea, vomiting, diarrhea, constipation, melena, hematochezia GENITOURINARY: Absent: dysuria, frequency, urgency, hesitancy, hematuria, flank pain, genital pain MUSCULOSKELETAL: Absent: myalgia, arthralgia, joint swelling, back pain, neck pain SKIN: Present: left axilla swelling, pain, redness Absent: rash, itching, pallor HEMATOLOGIC/IMMUNOLOGIC: Absent: easy bleeding, easy bruising, lymphadenopathy, frequent infections ENDOCRINE: Absent: unexplained weight gain, unexplained weight loss, heat intolerance, cold intolerance NEUROLOGIC: Absent: headache, focal weakness or paresthesias, dizziness, unsteady gait, seizure, mental status changes, bladder or bowel incontinence PSYCHIATRIC: Absent: anxiety, depression, suicidal or homicidal ideation, hallucinations. PHYSICAL EXAMINATION Vital Signs - 24 hr 3 07/28/17 07/28/17 07/28/17 09:39 14:23 17:35 Temperature 98.0 F 99.9 F H 100.6 F H Pulse Rate 120 H Pulse Rate [ 106 H 110 H Radial] Respiratory 18 20 18 Rate Blood Pressure 107/79 Blood Pressure 130/101 117/84 [Left Arm] O2 Sat by Pulse 100 97 100 Oximetry (%) 3 07/28/17 07/28/17 20:31 20:42 Temperature 98.9 F Pulse Rate 78 Pulse Rate [ Radial] Respiratory 20 Rate Blood Pressure 128/68 Blood Pressure [Left Arm] O2 Sat by Pulse 96 95 Oximetry (%) GENERAL: Awake, alert, and fully oriented, in no acute distress. HEAD: Normal with no signs of trauma. EYES: Pupils equal, round and reactive to light, extraocular movements intact, sclera anicteric, conjunctiva clear. No lid lag. EARS, NOSE, THROAT: Ears normal, nares patent, oropharynx clear without exudates. Moist mucous membranes. NECK: Normal range of motion, supple without lymphadenopathy, JVD, or masses. LUNGS: Breath sounds equal, clear to auscultation bilaterally. No wheezes, and no crackles. No accessory muscle use. HEART: Regular rate and rhythm, normal S1 and S2 without murmur, rub or gallop. ABDOMEN: Soft, nontender, not distended, normoactive bowel sounds, no guarding, no rebound, no masses. No hepatomegaly or splenomegaly. MUSCULOSKELETAL: Normal range of motion at all joints. No bony deformities or tenderness. No CVA tenderness. UPPER EXTREMITIES: 2+ pulses, warm, well-perfused. No cyanosis. No clubbing. No peripheral edema. LOWER EXTREMITIES: 2+ pulses, warm, well-perfused. No calf tenderness. No peripheral edema. NEUROLOGICAL: Cranial nerves II-XII intact. Normal speech. Normal gait. PSYCHIATRIC: Cooperative. Good eye contact. Appropriate mood and affect. SKIN: Warm, dry, normal turgor, no rashes or lesions noted, normal capillary refill. left axilla with several areas induration, large area erythema, incision draining yellowish purulent discharge. erythema extends down inner upper arm, extends distal to previously drawn pen line approx 2cm, new pen line drawn Laboratory Results - last 24 hr 3 07/28/17 07/28/17 10:09 10:09 WBC 14.5 H D RBC 4.52 Hgb 11.6 D Hct 36.8 MCV 81.5 MCH 25.6 L MCHC 31.5 L RDW 21.8 H Plt Count 362 D MPV 8.1 Neutrophils % 82.8 Lymphocytes % 8.6 D Monocytes % 7.4 Eosinophils % 0.8 Basophils % 0.4 Sodium 141 Potassium 3.5 Chloride 109 H Carbon Dioxide 22 Anion Gap 10 BUN 11 Creatinine 0.6 Creat Clearance w eGFR > 60 Random Glucose 82 Calcium 8.5 Total Bilirubin 0.5 D AST 7 L ALT 13 Alkaline Phosphatase 114 Total Protein 7.5 Albumin 3.7 ASSESSMENT/PLAN: 46yF with PMH DM, PCOS, migraines presented with abscess to left axilla. left axilla abscess - cont vanco and zosyn, likely MRSA - follow culture results - ID consult - Surgical consult appreciated - elevate arm DM - pt denies true diagnosis of DM in past but states that her sugar has been elevated, states she takes metformin for PCOS - check A1C - BGM AC/HS with novolog SS migraines - pt states that she takes topamax for her migraines, she thinks 25mg BID - cont fiorecet and imitrex PRN anxiety - pt states she takes quetiapine for her anxiety but is unsure of dose - pt states her neurontin is a mood stabilizer, she states that she believes she takes 400mg 5x per day. Will need to verify this dose DVT PPX - defer for now, anticipated LOS <48h FEN - defer ivf, tolerating po - bmp in am - diabetic diet Dispo: Pt currently requires further observation for management of her emergent condition. Visit type - Emergency Visit Emergency Visit: Yes ED Registration Date: 07/28/17 Care time: The patient presented to the Emergency Department on the above date and was hospitalized for further evaluation of their emergent condition. - New Patient This patient is new to me today: Yes Date on this admission: 07/28/17 - Critical Care Critical Care patient: No
[2017-07-29] MEDS: PIPERACILLIN/TAZOB 3.375 GM 3.375 GM in DEXTROSE 5%-WATER - 100 ML IVPB SCH ×2 (02:39→09:53)
[2017-07-29] MEDS: INSULIN SLIDING SCALE (NOVOLOG) 1 VIAL SQ SCH ×4 (06:02→21:11)
[2017-07-29] MEDS: metFORMIN HCL 500 MG TABLET (FP) PO SCH (06:04)
[2017-07-29 08:45] LABS: CHLORIDE 107 mmol/L (98-107); POTASSIUM 3.4 mmol/L (3.5-5.1); SODIUM 140 mmol/L (136-145)
[2017-07-29 08:51] LABS: BASO % 0.3 % (0-2.0); EOS % 1.9 % (0-4.5); HEMATOCRIT 31.6 % (32.4-45.2); HEMOGLOBIN 9.7 GM/dL (10.7-15.3); LYMPH % 9.4 % (8-40); MCH 24.8 pg (25.7-33.7); MCHC 30.6 g/dl (32.0-36.0); MEAN CELL VOLUME 81.1 fl (80-96); MONO % 8.7 % (3.8-10.2); NEUT % 79.7 % (42.8-82.8); RDW 20.7 % (11.6-15.6)
[2017-07-29 08:52] LABS: ANION GAP 10 (8-16); BLOOD UREA NITROGEN 11 mg/dL (7-18); CALCIUM 7.9 mg/dL (8.5-10.1); CO2 23 mmol/L (21-32); CREATININE 0.5 mg/dL (0.55-1.02); GLUCOSE,RANDOM 112 mg/dL (74-106); PHOSPHOROUS 3.9 mg/dL (2.5-4.9)
[2017-07-29] MEDS: TOPIRAMATE 25 MG TABLET (FP) PO SCH ×2 (09:53→21:10)
[2017-07-29] MEDS: GABAPENTIN 100 MG CAPSULE (FP) PO SCH (09:53)
[2017-07-29 10:27] LABS: MEAN PLT VOLUME 7.8 fl (7.5-11.1); PLATELET ESTIMATE ADEQUATE
[2017-07-29] MEDS ORDERED: PIPERACILLIN/TAZOB 3.375 GM/50 ML PRE-DOCKED IVPB SCH (12:00)
--- NOTE | 2017-07-29 12:57 | CON.ID ---
Consult Consult Specialty:: infectious disease Referred by:: hospitalist Reason for Consultation:: abscess under axilla - History of Present Illness Chief Complaint: abscess History of Present Illness: 46 year old female no diabetes, no prior abscesses, admitted with subjective fevers -intermittent for last one week- did not take temperature at home and worsening abscess under her axilla over the last 10 days started as a pimple no history of injection drug use denies diiabetes on metformis for PCOS - History Source History Provided By: Patient Limitations to Obtaining History: No Limitations - Past Medical History MANAGER BUILDING: Yes: Other (migraine headaches) Reproductive: Yes: Polycystic Ovary Syndrome Musculoskeletal: Yes: Chronic low back pain Endocrine: Yes: Diabetes Mellitus - Past Surgical History Past Surgical History: Yes: Bariatric Surgery Additional Surgical History: umbilical hernia repair - Alcohol/Substance Use Hx Alcohol Use: No - Smoking History Smoking history: Current some day smoker Have you smoked in the past 12 months: Yes Aproximately how many cigarettes per day: 6 - Social History Usual Living Arrangement: With Spouse ADL: Independent History of Recent Travel: No Home Medications - Allergies Allergies/Adverse Reactions: Allergies Allergy/AdvReac Type Severity Reaction Status Date / Time No Known Allergies Allergy Verified 07/28/17 09:38 - Home Medications Home Medications: Ambulatory Orders Gabapentin 100 mg PO DAILY 06/19/17 Zolpidem Tartrate [Ambien] 0 mg PO HS 06/20/17 Acetaminophen/Caffeine/Butalb [Fioricet -] 1 tablet PO Q6H PRN tablet MDD 4 09/03 Sumatriptan Succinate [Imitrex -] 50 mg PO ONCE tablet 06/21/17 metFORMIN HCL [Glucophage -] 500 mg PO DAILY@0700 tablet 06/21/17 Family Disease History - Family Disease History Family Disease History: Diabetes: Mother Review of Systems - Review of Systems Constitutional: reports: Fever, Night Sweats Eyes: reports: No Symptoms HENT: reports: No Symptoms Neck: reports: No Symptoms Cardiovascular: reports: No Symptoms Respiratory: reports: No Symptoms Gastrointestinal: reports: No Symptoms Genitourinary: reports: No Symptoms Breasts: reports: No Symptoms Reported Physical Exam Vital Signs: Vital Signs Temperature 98.9 F 07/29/17 09:25 Pulse Rate 83 07/29/17 09:25 Respiratory Rate 18 07/29/17 09:25 Blood Pressure 127/77 07/29/17 09:25 O2 Sat by Pulse Oximetry (%) 99 07/29/17 04:42 Constitutional: Yes: Well Nourished, No Distress, Calm Eyes: Yes: Conjunctiva Clear HENT: Yes: Atraumatic, Normocephalic. No: Thrush, Tonsillar Exudate Neck: Yes: Supple Cardiovascular: Yes: Regular Rate and Rhythm. No: Murmur Respiratory: Yes: Regular, CTA Bilaterally Gastrointestinal: Yes: Normal Bowel Sounds, Soft Extremities: Yes: Other (right axillary mass with erythema extending to right upper arm) Psychiatric: Yes: Alert, Oriented Labs: CBC, BMP 07/29/17 06:55 07/29/17 06:55 Microbiology 07/28/17 11:59 Axilla/Armpit - Right Gram Stain - Final 07/28/17 11:59 Axilla/Armpit - Right Wound Culture - Preliminary Presumptive Mrsa (Pbp2a Pos) 07/28/17 10:09 Blood - Peripheral Venous Blood Culture - Preliminary NO GROWTH OBTAINED AFTER 24 HOURS, INCUBATION TO CONTINUE FOR 4 DAYS. 07/28/17 10:09 Blood - Peripheral Venous Blood Culture - Preliminary NO GROWTH OBTAINED AFTER 24 HOURS, INCUBATION TO CONTINUE FOR 4 DAYS. Imaging - Results Ultrasound: Report Reviewed Problem List - Problems (1) Hidradenitis suppurativa of right axilla Code(s): L73.2 - HIDRADENITIS SUPPURATIVA (2) Cellulitis of right arm Code(s): L03.113 - CELLULITIS OF RIGHT UPPER LIMB Assessment/Plan continue vancomycin contact isolation for MRSA surgery to see for drainage d/w surgery
[2017-07-29] MEDS ORDERED: LIDOCAINE HCL 1%, 10 MG/ML (50 mL VIAL) SQ ONE (12:58)
--- NOTE | 2017-07-29 12:59 | PROC ---
Incision and Drainage Indication/Location: incison and drainage of right axillary abscess Risks and Benefits Explained: Yes Consent on Chart: Yes Betadine cleansed: Yes Anesthesia: 1% Lidocaine Blade Size: 10 Drainage: purlent <1ml, 1 crutiate incsions made irrigated and packed Irrigated with Normal Saline: Yes Iodinated Packin/2 in Sterile Dressing Applied: Yes - Remarks Remarks: hidradenitis
[2017-07-29] MEDS: MORPHINE SULFATE 10 MG/1 ML *VIAL IVPUSH PRN ×3 (13:00→21:11)
[2017-07-29] MEDS ORDERED: POTASSIUM CHLORIDE TABS 20 MEQ TABLET.ER (FP) PO ONE ×2 (13:00→17:30)
--- NOTE | 2017-07-29 13:00 | PN ---
Progress Note, Physician History of Present Illness: ABSCESS--SOME DRAINAGE C/O PAIN - Current Medication List Current Medications: Active Medications Acetaminophen (Tylenol -) 650 mg PO Q6H PRN PRN Reason: PAIN Acetaminophen/Butalbital/Caffeine (Fioricet -) 1 tablet PO Q6H PRN PRN Reason: migraine Gabapentin (Neurontin -) 100 mg PO DAILY [facility] Last Admin: 07/29/17 09:53 Dose: 100 mg Vancomycin HCl 1,000 mg/ (Dextrose) 250 mls @ 166.667 mls/hr IVPB BID@0200, 1400 [facility] PRN Reason: Protocol Insulin Aspart (Novolog Vial Sliding Scale -) 1 vial SQ HS [facility] PRN Reason: Protocol Insulin Aspart (Novolog Vial Sliding Scale -) 1 vial SQ TIDAC [facility] PRN Reason: Protocol Last Admin: 07/29/17 11:53 Dose: Not Given Lidocaine HCl (Xylocaine 1%) 20 ml SQ ONCE ONE Stop: 07/29/17 12:59 Metformin HCl (Glucophage -) 500 mg PO DAILY@0700 [facility] Last Admin: 07/29/17 06:04 Dose: 500 mg Morphine Sulfate (Morphine Injection -) 4 mg IVPUSH Q6H PRN PRN Reason: PAIN LEVEL 7 - 10 Topiramate (Topamax -) 25 mg PO BID [facility] Last Admin: 07/29/17 09:53 Dose: 25 mg Zolpidem Tartrate (Ambien -) 5 mg PO HS PRN PRN Reason: INSOMNIA - Objective Vital Signs: Vital Signs Temperature 98.9 F 07/29/17 09:25 Pulse Rate 83 07/29/17 09:25 Respiratory Rate 18 07/29/17 09:25 Blood Pressure 127/77 07/29/17 09:25 O2 Sat by Pulse Oximetry (%) 99 07/29/17 04:42 Cardiovascular: Yes: Regular Rate and Rhythm Respiratory: Yes: Regular, CTA Bilaterally Gastrointestinal: Yes: Normal Bowel Sounds, Soft Integumentary: Yes: Other (REDNESS OF THE RIGHT AXILLA WITH TENDERNESS) Labs: CBC, BMP 07/29/17 06:55 07/29/17 06:55 Assessment/Plan left axilla abscess - cont vanco and zosyn, likely MRSA - follow culture results - ID consult - Surgical consult appreciated--follow up - elevate arm DM - pt denies true diagnosis of DM in past but states that her sugar has been elevated, states she takes metformin for PCOS - check A1C - BGM AC/HS with novolog SS migraines - pt states that she takes topamax for her migraines, she thinks 25mg BID - cont fiorecet and imitrex PRN anxiety - pt states she takes quetiapine for her anxiety but is unsure of dose - pt states her neurontin is a mood stabilizer, she states that she believes she takes 400mg 5x per day. Will need to verify this dose DVT PPX - sq heparin
[2017-07-29] MEDS ORDERED: LIDOCAINE HCL 1%, 10 MG/ML (20ML VIAL) ONE (13:06)
[2017-07-29] MEDS: VANCOMYCIN 1,000 MG in DEXTROSE 5%-WATER - 250 ML IVPB SCH (17:30)
[2017-07-29] MEDS: ZOLPIDEM TARTRATE 5 MG TABLET PO PRN (21:10)
[2017-07-29] MEDS: HEPARIN NA (PORCINE) 5,000 UNITS/ML 1ML VIAL SQ SCH (21:11)
[2017-07-30] MEDS ORDERED: PT OWN MED DRAWER 7, Y5N ONE ×2 (03:57→20:47)
[2017-07-30] MEDS: VANCOMYCIN 1,000 MG in DEXTROSE 5%-WATER - 250 ML IVPB SCH (04:00)
[2017-07-30] MEDS: INSULIN SLIDING SCALE (NOVOLOG) 1 VIAL SQ SCH ×4 (06:19→21:07)
[2017-07-30] MEDS: metFORMIN HCL 500 MG TABLET (FP) PO SCH (06:19)
[2017-07-30 07:46] LABS: BASO % 0.6 % (0-2.0); EOS % 2.3 % (0-4.5); HEMATOCRIT 32.3 % (32.4-45.2); HEMOGLOBIN 10.2 GM/dL (10.7-15.3); LYMPH % 20.7 % (8-40); MCH 25.6 pg (25.7-33.7); MCHC 31.6 g/dl (32.0-36.0); MEAN CELL VOLUME 80.9 fl (80-96); MONO % 9.7 % (3.8-10.2); NEUT % 66.7 % (42.8-82.8); RBC 3.99 M/mm3 (3.60-5.2); RDW 20.9 % (11.6-15.6); WHITE BLOOD COUNT 9.6 K/mm3 (4.0-10.0)
[2017-07-30 08:03] LABS: ALBUMIN 3.1 g/dl (3.4-5.0); ANION GAP 8 (8-16); BLOOD UREA NITROGEN 9 mg/dL (7-18); CALCIUM 8.5 mg/dL (8.5-10.1); CHLORIDE 108 mmol/L (98-107); CO2 25 mmol/L (21-32); CREATININE 0.6 mg/dL (0.55-1.02); GLUCOSE,RANDOM 112 mg/dL (74-106); MAGNESIUM 2.4 mg/dL (1.8-2.4); POTASSIUM 3.6 mmol/L (3.5-5.1); SGOT/AST 11 U/L (15-37); SGPT/ALT 15 U/L (12-78); SODIUM 141 mmol/L (136-145)
[2017-07-30 08:05] LABS: ALK PHOS 103 U/L (45-117); BILIRUBIN,TOTAL 0.3 mg/dL (0.2-1.0)
[2017-07-30 08:32] LABS: MEAN PLT VOLUME 7.8 fl (7.5-11.1); PLATELET ESTIMATE ADEQUATE
[2017-07-30] MEDS: TOPIRAMATE 25 MG TABLET (FP) PO SCH ×2 (10:33→21:07)
[2017-07-30] MEDS: GABAPENTIN 100 MG CAPSULE (FP) PO SCH (10:33)
[2017-07-30] MEDS: HEPARIN NA (PORCINE) 5,000 UNITS/ML 1ML VIAL SQ SCH ×2 (10:33→21:08)
--- NOTE | 2017-07-30 11:05 | PN ---
Progress Note (short form) - Note Progress Note: s/p incision and drainage yesterday Vital Signs Period Temp Pulse Resp BP Sys/Momin Pulse Ox Last 24 Hr 98.0 F-98.8 F 82-90 14-21 100-120/55-72 99-99 cor rrr lungs clear upper arm still quite indurated, erythema within markings, packing in axilla abd soft,nt ext no edema CBC, BMP 07/30/17 07:00 07/30/17 07:00 Microbiology 07/28/17 10:09 Blood - Peripheral Venous Blood Culture - Preliminary NO GROWTH OBTAINED AFTER 48 HOURS, INCUBATION TO CONTINUE FOR 3 DAYS. 07/28/17 10:09 Blood - Peripheral Venous Blood Culture - Preliminary NO GROWTH OBTAINED AFTER 48 HOURS, INCUBATION TO CONTINUE FOR 3 DAYS. 07/28/17 11:59 Axilla/Armpit - Right Gram Stain - Final 07/28/17 11:59 Axilla/Armpit - Right Wound Culture - Preliminary Mr S Aureus a/p MRSA abscess with cellulitis- no bacteremia, vanco anil is 2, will switch to clindamycin Problem List - Problems (1) Hidradenitis suppurativa of right axilla Code(s): L73.2 - HIDRADENITIS SUPPURATIVA (2) Cellulitis of right arm Code(s): L03.113 - CELLULITIS OF RIGHT UPPER LIMB
[2017-07-30] MEDS: MORPHINE SULFATE 10 MG/1 ML *VIAL IVPUSH PRN ×2 (11:56→20:51)
[2017-07-30] MEDS: CLINDAMYCIN 600MG PREMIX IVPB 600 MG/50 ML BAG IVPB SCH ×2 (11:57→17:37)
--- NOTE | 2017-07-30 12:05 | PN ---
Progress Note, Physician Chief Complaint: right axillary hidradenitis History of Present Illness: 46 yo female with PMH DM type 2 presents with an abscess on her right axilla. She states that it started as what she thought was a "pimple" 2 weeks ago but yesterday became much larger, inflamed and red. It was drained in the emergency department and we were called to assess and provide wound care follow- up. he range of motion id limited by the tenderness. She denies fever and chills. She has no history of hidradenitis. slept well overnight - Current Medication List Current Medications: Active Medications Acetaminophen (Tylenol -) 650 mg PO Q6H PRN PRN Reason: PAIN Acetaminophen/Butalbital/Caffeine (Fioricet -) 1 tablet PO Q6H PRN PRN Reason: migraine Gabapentin (Neurontin -) 100 mg PO DAILY [facility] Last Admin: 07/30/17 10:33 Dose: 100 mg Heparin Sodium (Porcine) (Heparin -) 5,000 unit SQ BID [facility] Last Admin: 07/30/17 10:33 Dose: 5,000 unit Clindamycin Phosphate (Cleocin 600 Mg Premix Ivpb -) 600 mg in 50 mls @ 100 mls /hr IVPB Q8H-IV [facility] Last Admin: 07/30/17 11:57 Dose: 100 mls/hr Insulin Aspart (Novolog Vial Sliding Scale -) 1 vial SQ HS [facility] PRN Reason: Protocol Last Admin: 07/29/17 21:11 Dose: Not Given Insulin Aspart (Novolog Vial Sliding Scale -) 1 vial SQ TIDAC [facility] PRN Reason: Protocol Last Admin: 07/30/17 11:41 Dose: Not Given Lactobacillus Acidophilus (Bacid -) 1 tab PO DAILY [facility] Metformin HCl (Glucophage -) 500 mg PO DAILY@0700 [facility] Last Admin: 07/30/17 06:19 Dose: 500 mg Morphine Sulfate (Morphine Injection -) 4 mg IVPUSH Q4H PRN PRN Reason: PAIN LEVEL 7 - 10 Last Admin: 07/30/17 11:56 Dose: 4 mg Topiramate (Topamax -) 25 mg PO BID [facility] Last Admin: 07/30/17 10:33 Dose: 25 mg Zolpidem Tartrate (Ambien -) 5 mg PO HS PRN PRN Reason: INSOMNIA Last Admin: 07/29/17 21:10 Dose: 5 mg - Objective Vital Signs: Vital Signs Temperature 98.6 F 07/30/17 06:00 Pulse Rate 84 07/30/17 06:00 Respiratory Rate 18 07/30/17 06:00 Blood Pressure 100/62 07/30/17 06:00 O2 Sat by Pulse Oximetry (%) 99 07/30/17 04:00 Constitutional: Yes: Well Nourished, No Distress, Calm Eyes: Yes: Conjunctiva Clear, EOM Intact HENT: Yes: Atraumatic, Normocephalic Neck: Yes: Supple, Trachea Midline Cardiovascular: Yes: Regular Rate and Rhythm, S1, S2 Respiratory: Yes: Regular, CTA Bilaterally Gastrointestinal: Yes: Normal Bowel Sounds, Soft. No: Tenderness ...Rectal Exam: Yes: Deferred Genitourinary: No: CVA Tenderness - Left, CVA Tenderness - Right Integumentary: Yes: Other (virilization - coarse facial hair) Psychiatric: Yes: Oriented, Agitated Labs: CBC, BMP 07/30/17 07:00 07/30/17 07:00 Problem List - Problems (1) Hidradenitis suppurativa of right axilla Assessment/Plan: 46yo female PMH inclding diabetes type 2, PCOS presents with right arm axillary abscess s/p I&D in ED and now twice in differnt areas on the floor. Bedside I& D of repeted right arm abscess 07/30/2017 daily local wound care with packing broad spectrum empiric IV antibiotics ID consult f/u cultures right arm elevation glycemic control adequate analgesia repeat labs Will follow Code(s): L73.2 - HIDRADENITIS SUPPURATIVA (2) Cellulitis of right arm Code(s): L03.113 - CELLULITIS OF RIGHT UPPER LIMB (3) Abscess Code(s): L02.91 - CUTANEOUS ABSCESS, UNSPECIFIED (4) Diabetes Code(s): E11.9 - TYPE 2 DIABETES MELLITUS WITHOUT COMPLICATIONS Qualifiers: Diabetes mellitus type: type 2 Diabetes mellitus complication status: with unspecified complications Diabetes mellitus automatic clipper insulin use: without fdc use Qualified Code(s): E11.8 - Type 2 diabetes mellitus with unspecified complications (5) Lumbar radiculopathy Code(s): M54.16 - RADICULOPATHY, LUMBAR REGION (6) Peripheral edema Code(s): R60.9 - EDEMA, UNSPECIFIED
[2017-07-30] MEDS ORDERED: LIDOCAINE HCL 1%, 10 MG/ML (50 mL VIAL) NR ONE (12:11)
[2017-07-30] MEDS ORDERED: LIDOCAINE HCL 1%, 10 MG/ML (20ML VIAL) ONE (12:22)
--- NOTE | 2017-07-30 12:49 | PROC ---
Incision and Drainage Indication/Location: incision and drainage of right arm abscess medial aspect anterior axilla Risks and Benefits Explained: Yes Consent on Chart: Yes Betadine cleansed: Yes Anesthesia: 1% Lidocaine Blade Size: 10 Drainage: purulent material >2ml Irrigated with Normal Saline: Yes (and peroxide solution ) Iodinated Packin/2 in Plain packing: No Sterile Dressing Applied: Yes
--- NOTE | 2017-07-30 14:51 | PN ---
Progress Note, Physician Chief Complaint: Cellulitis RUE History of Present Illness: seen by ID on IV abx Seen by Surgery Wound care daily with packing - Current Medication List Current Medications: Active Medications Acetaminophen (Tylenol -) 650 mg PO Q6H PRN PRN Reason: PAIN Acetaminophen/Butalbital/Caffeine (Fioricet -) 1 tablet PO Q6H PRN PRN Reason: migraine Gabapentin (Neurontin -) 100 mg PO DAILY [facility] Last Admin: 07/30/17 10:33 Dose: 100 mg Heparin Sodium (Porcine) (Heparin -) 5,000 unit SQ BID [facility] Last Admin: 07/30/17 10:33 Dose: 5,000 unit Clindamycin Phosphate (Cleocin 600 Mg Premix Ivpb -) 600 mg in 50 mls @ 100 mls /hr IVPB Q8H-IV [facility] Last Admin: 07/30/17 11:57 Dose: 100 mls/hr Insulin Aspart (Novolog Vial Sliding Scale -) 1 vial SQ HS [facility] PRN Reason: Protocol Last Admin: 07/29/17 21:11 Dose: Not Given Insulin Aspart (Novolog Vial Sliding Scale -) 1 vial SQ TIDAC [facility] PRN Reason: Protocol Last Admin: 07/30/17 11:41 Dose: Not Given Lactobacillus Acidophilus (Bacid -) 1 tab PO DAILY [facility] Metformin HCl (Glucophage -) 500 mg PO DAILY@0700 [facility] Last Admin: 07/30/17 06:19 Dose: 500 mg Morphine Sulfate (Morphine Injection -) 4 mg IVPUSH Q4H PRN PRN Reason: PAIN LEVEL 7 - 10 Last Admin: 07/30/17 11:56 Dose: 4 mg Topiramate (Topamax -) 25 mg PO BID [facility] Last Admin: 07/30/17 10:33 Dose: 25 mg Zolpidem Tartrate (Ambien -) 5 mg PO HS PRN PRN Reason: INSOMNIA Last Admin: 07/29/17 21:10 Dose: 5 mg - Objective Vital Signs: Vital Signs Temperature 98.0 F 07/30/17 14:00 Pulse Rate 84 07/30/17 06:00 Respiratory Rate 18 07/30/17 06:00 Blood Pressure 100/62 07/30/17 06:00 O2 Sat by Pulse Oximetry (%) 99 07/30/17 04:00 Constitutional: Yes: Well Nourished, No Distress, Calm Cardiovascular: Yes: Regular Rate and Rhythm Respiratory: Yes: Regular Gastrointestinal: Yes: Normal Bowel Sounds, Soft Musculoskeletal: Yes: WNL Extremities: Yes: WNL Edema: No Peripheral Pulses WNL: Yes Wound/Incision: Yes: Dressing Dry and Intact Neurological: Yes: Alert, Oriented Psychiatric: Yes: Alert, Oriented Labs: CBC, BMP 07/30/17 07:00 07/30/17 07:00 Problem List - Problems (1) Cellulitis of right arm Assessment/Plan: -Seen by ID -IV abx -Seen by Surgery -wound packing -pain management Code(s): L03.113 - CELLULITIS OF RIGHT UPPER LIMB (2) Hidradenitis suppurativa of right axilla Code(s): L73.2 - HIDRADENITIS SUPPURATIVA (3) Diabetes Code(s): E11.9 - TYPE 2 DIABETES MELLITUS WITHOUT COMPLICATIONS Qualifiers: Diabetes mellitus type: type 2 Diabetes mellitus complication status: with unspecified complications Diabetes mellitus custodial insulin use: without hangar attendant use Qualified Code(s): E11.8 - Type 2 diabetes mellitus with unspecified complications Assessment/Plan see problem list
[2017-07-30] MEDS: LACTOBACILLUS ACIDOPHILUS 1 EACH TAB (FP) PO SCH (16:58)
[2017-07-30] MEDS: ZOLPIDEM TARTRATE 5 MG TABLET PO PRN (21:07)
[2017-07-30] MEDS ORDERED: oxyCODONE HCL 5 MG TABLET PO PRN (21:55)
[2017-07-31] MEDS: CLINDAMYCIN 600MG PREMIX IVPB 600 MG/50 ML BAG IVPB SCH ×3 (02:28→17:23)
[2017-07-31] MEDS: INSULIN SLIDING SCALE (NOVOLOG) 1 VIAL SQ SCH ×3 (06:07→17:22)
[2017-07-31 08:06] LABS: BASO % 0.8 % (0-2.0); EOS % 2.7 % (0-4.5); HEMATOCRIT 32.5 % (32.4-45.2); HEMOGLOBIN 10.2 GM/dL (10.7-15.3); LYMPH % 23.2 % (8-40); MCH 25.6 pg (25.7-33.7); MCHC 31.3 g/dl (32.0-36.0); MEAN CELL VOLUME 81.7 fl (80-96); MONO % 7.6 % (3.8-10.2); NEUT % 65.7 % (42.8-82.8); PLATELET COUNT 360 K/MM3 (134-434); RBC 3.98 M/mm3 (3.60-5.2); RDW 21.6 % (11.6-15.6); WHITE BLOOD COUNT 6.7 K/mm3 (4.0-10.0)
[2017-07-31] MEDS: MORPHINE SULFATE 10 MG/1 ML *VIAL IVPUSH PRN ×2 (08:15→17:22)
[2017-07-31 08:42] LABS: ALBUMIN 3.1 g/dl (3.4-5.0); ALK PHOS 100 U/L (45-117); ANION GAP 6 (8-16); BILIRUBIN,TOTAL 0.2 mg/dL (0.2-1.0); BLOOD UREA NITROGEN 13 mg/dL (7-18); CALCIUM 8.7 mg/dL (8.5-10.1); CHLORIDE 109 mmol/L (98-107); CO2 24 mmol/L (21-32); CREATININE 0.7 mg/dL (0.55-1.02); GLUCOSE,RANDOM 120 mg/dL (74-106); POTASSIUM 3.7 mmol/L (3.5-5.1); SGOT/AST 24 U/L (15-37); SGPT/ALT 26 U/L (12-78); SODIUM 139 mmol/L (136-145); TOT PROT 6.9 g/dl (6.4-8.2)
[2017-07-31] MEDS: HEPARIN NA (PORCINE) 5,000 UNITS/ML 1ML VIAL SQ SCH ×2 (09:26→21:38)
[2017-07-31] MEDS: LACTOBACILLUS ACIDOPHILUS 1 EACH TAB (FP) PO SCH (09:26)
[2017-07-31] MEDS: GABAPENTIN 100 MG CAPSULE (FP) PO SCH (09:26)
[2017-07-31] MEDS: TOPIRAMATE 25 MG TABLET (FP) PO SCH ×2 (09:26→21:37)
--- NOTE | 2017-07-31 09:59 | PN ---
Progress Note, Physician Chief Complaint: right axillary hidradenitis History of Present Illness: 46 yo female with PMH DM type 2 presents with an abscess on her right axilla. She states that it started as what she thought was a "pimple" 2 weeks ago but yesterday became much larger, inflamed and red. It was drained in the emergency department and we were called to assess and provide wound care follow- up. he range of motion id limited by the tenderness. She denies fever and chills. She has no history of hidradenitis. slept well overnight - Current Medication List Current Medications: Active Medications Acetaminophen (Tylenol -) 650 mg PO Q6H PRN PRN Reason: PAIN Acetaminophen/Butalbital/Caffeine (Fioricet -) 1 tablet PO Q6H PRN PRN Reason: migraine Gabapentin (Neurontin -) 100 mg PO DAILY [facility] Last Admin: 07/31/17 09:26 Dose: 100 mg Heparin Sodium (Porcine) (Heparin -) 5,000 unit SQ BID [facility] Last Admin: 07/31/17 09:26 Dose: 5,000 unit Clindamycin Phosphate (Cleocin 600 Mg Premix Ivpb -) 600 mg in 50 mls @ 100 mls /hr IVPB Q8H-IV [facility] Last Admin: 07/31/17 09:26 Dose: 100 mls/hr Insulin Aspart (Novolog Vial Sliding Scale -) 1 vial SQ HS [facility] PRN Reason: Protocol Last Admin: 07/30/17 21:07 Dose: Not Given Insulin Aspart (Novolog Vial Sliding Scale -) 1 vial SQ TIDAC [facility] PRN Reason: Protocol Last Admin: 07/31/17 06:07 Dose: Not Given Lactobacillus Acidophilus (Bacid -) 1 tab PO DAILY [facility] Last Admin: 07/31/17 09:26 Dose: 1 tab Morphine Sulfate (Morphine Injection -) 4 mg IVPUSH Q4H PRN PRN Reason: PAIN LEVEL 7 - 10 Last Admin: 07/31/17 08:15 Dose: 4 mg Oxycodone HCl (Roxicodone -) 5 mg PO Q4H PRN PRN Reason: PAIN LEVEL 4 - 6 Topiramate (Topamax -) 25 mg PO BID [facility] Last Admin: 07/31/17 09:26 Dose: 25 mg Zolpidem Tartrate (Ambien -) 5 mg PO HS PRN PRN Reason: INSOMNIA Last Admin: 07/30/17 21:07 Dose: 5 mg - Objective Vital Signs: Vital Signs Temperature 97.7 F 07/31/17 08:00 Pulse Rate 86 07/31/17 08:00 Respiratory Rate 18 07/31/17 08:00 Blood Pressure 120/70 07/31/17 08:00 O2 Sat by Pulse Oximetry (%) 99 07/31/17 04:00 Vital Signs Period Temp Pulse Resp BP Sys/Momin Pulse Ox Last 24 Hr 97.7 F-99.3 F 80-100 18-20 98-120/56-70 99-99 Constitutional: Yes: Well Nourished, No Distress, Calm Eyes: Yes: Conjunctiva Clear, EOM Intact HENT: Yes: Atraumatic, Normocephalic Neck: Yes: Supple, Trachea Midline Cardiovascular: Yes: Regular Rate and Rhythm, S1, S2 Respiratory: Yes: Regular, CTA Bilaterally. No: Wheezes Gastrointestinal: Yes: Normal Bowel Sounds, Soft. No: Tenderness ...Rectal Exam: Yes: Deferred Genitourinary: No: CVA Tenderness - Left, CVA Tenderness - Right Musculoskeletal: No: Muscle Pain, Muscle Weakness Extremities: No: Cool, Cyanosis Wound/Incision: Yes: Dressing Removed (replaced), Draining, Reddened, Unapproximated (three crutiate incsions 1.5cm) Neurological: Yes: Alert, Oriented Psychiatric: Yes: Alert, Oriented Labs: CBC, BMP 07/31/17 07:51 07/31/17 07:51 Problem List - Problems (1) Hidradenitis suppurativa of right axilla Assessment/Plan: 46yo female MMP presents with right arm axiliary abscess s/p I&D of abscesses, WBC now normal daily local wound care Wound measurements: three crutiate incisions [id number] Dressing instructions: 1/2" iodoform. 4X4 gauze pads and sponges, kerlex and coban and tape IV antibiotics per ID right arm elevation glycemic control adequate analgesia Will follow Code(s): L73.2 - HIDRADENITIS SUPPURATIVA (2) Cellulitis of right arm Code(s): L03.113 - CELLULITIS OF RIGHT UPPER LIMB (3) Abscess Code(s): L02.91 - CUTANEOUS ABSCESS, UNSPECIFIED (4) Diabetes Code(s): E11.9 - TYPE 2 DIABETES MELLITUS WITHOUT COMPLICATIONS Qualifiers: Diabetes mellitus type: type 2 Diabetes mellitus complication status: with unspecified complications Diabetes mellitus cell changer insulin use: without longterm use Qualified Code(s): E11.8 - Type 2 diabetes mellitus with unspecified complications (5) Lumbar radiculopathy Code(s): M54.16 - RADICULOPATHY, LUMBAR REGION (6) Peripheral edema Code(s): R60.9 - EDEMA, UNSPECIFIED
--- NOTE | 2017-07-31 10:32 | PN ---
Progress Note (short form) - Note Progress Note: s/p incision and drainage yesterday-right upper arm- less erythema noted Vital Signs Period Temp Pulse Resp BP Sys/Momin Pulse Ox Last 24 Hr 97.7 F-99.3 F 80-100 18-20 98-120/56-70 99-99 cor-rrr lungs decreased bs at bases abd soft,nt ext less erythema of the upper arm, no areas packed CBC, BMP 07/31/17 07:51 07/31/17 07:51 Microbiology 07/28/17 11:59 Axilla/Armpit - Right Gram Stain - Final 07/28/17 11:59 Axilla/Armpit - Right Wound Culture - Final Mr S Aureus 07/28/17 10:09 Blood - Peripheral Venous Blood Culture - Preliminary NO GROWTH OBTAINED AFTER 48 HOURS, INCUBATION TO CONTINUE FOR 3 DAYS. 07/28/17 10:09 Blood - Peripheral Venous Blood Culture - Preliminary NO GROWTH OBTAINED AFTER 48 HOURS, INCUBATION TO CONTINUE FOR 3 DAYS. a/p MRSA abscess with cellulitis- continue clindamycin, surgical f/u ongoing, cellulitis improving Problem List - Problems (1) Hidradenitis suppurativa of right axilla Code(s): L73.2 - HIDRADENITIS SUPPURATIVA (2) Cellulitis of right arm Code(s): L03.113 - CELLULITIS OF RIGHT UPPER LIMB
--- NOTE | 2017-07-31 11:53 | PN ---
Progress Note, Physician Chief Complaint: Cellulitis RUE History of Present Illness: seen by ID on IV abx Seen by Surgery Wound care daily with packing lethargic and sleepy at this time - Current Medication List Current Medications: Active Medications Acetaminophen (Tylenol -) 650 mg PO Q6H PRN PRN Reason: PAIN Acetaminophen/Butalbital/Caffeine (Fioricet -) 1 tablet PO Q6H PRN PRN Reason: migraine Gabapentin (Neurontin -) 100 mg PO DAILY [facility] Last Admin: 07/31/17 09:26 Dose: 100 mg Heparin Sodium (Porcine) (Heparin -) 5,000 unit SQ BID [facility] Last Admin: 07/31/17 09:26 Dose: 5,000 unit Clindamycin Phosphate (Cleocin 600 Mg Premix Ivpb -) 600 mg in 50 mls @ 100 mls /hr IVPB Q8H-IV [facility] Last Admin: 07/31/17 09:26 Dose: 100 mls/hr Insulin Aspart (Novolog Vial Sliding Scale -) 1 vial SQ HS [facility] PRN Reason: Protocol Last Admin: 07/30/17 21:07 Dose: Not Given Insulin Aspart (Novolog Vial Sliding Scale -) 1 vial SQ TIDAC [facility] PRN Reason: Protocol Last Admin: 07/31/17 11:25 Dose: Not Given Lactobacillus Acidophilus (Bacid -) 1 tab PO DAILY [facility] Last Admin: 07/31/17 09:26 Dose: 1 tab Morphine Sulfate (Morphine Injection -) 4 mg IVPUSH Q4H PRN PRN Reason: PAIN LEVEL 7 - 10 Last Admin: 07/31/17 08:15 Dose: 4 mg Oxycodone HCl (Roxicodone -) 5 mg PO Q4H PRN PRN Reason: PAIN LEVEL 4 - 6 Topiramate (Topamax -) 25 mg PO BID [facility] Last Admin: 07/31/17 09:26 Dose: 25 mg Zolpidem Tartrate (Ambien -) 5 mg PO HS PRN PRN Reason: INSOMNIA Last Admin: 07/30/17 21:07 Dose: 5 mg - Objective Vital Signs: Vital Signs Temperature 97.7 F 07/31/17 08:00 Pulse Rate 86 07/31/17 08:00 Respiratory Rate 18 07/31/17 08:00 Blood Pressure 120/70 07/31/17 08:00 O2 Sat by Pulse Oximetry (%) 99 07/31/17 04:00 Constitutional: Yes: Well Nourished, No Distress, Calm Cardiovascular: Yes: Regular Rate and Rhythm Respiratory: Yes: Regular Gastrointestinal: Yes: Normal Bowel Sounds, Soft Musculoskeletal: Yes: WNL Extremities: Yes: Erythema (RUE) Edema: No Peripheral Pulses WNL: Yes Wound/Incision: Yes: Dressing Dry and Intact Neurological: Yes: Alert, Lethargy Psychiatric: Yes: Alert, Oriented Labs: CBC, BMP 07/31/17 07:51 07/31/17 07:51 Problem List - Problems (1) Cellulitis of right arm Assessment/Plan: -Seen by ID -IV abx -Seen by Surgery -wound packing -pain management Code(s): L03.113 - CELLULITIS OF RIGHT UPPER LIMB (2) Hidradenitis suppurativa of right axilla Code(s): L73.2 - HIDRADENITIS SUPPURATIVA (3) Diabetes Assessment/Plan: last A1c 5.5 -d/c BGM -D/C insulin sliding scale Code(s): E11.9 - TYPE 2 DIABETES MELLITUS WITHOUT COMPLICATIONS Qualifiers: Diabetes mellitus type: type 2 Diabetes mellitus complication status: with unspecified complications Diabetes mellitus senior care insulin use: without senior care use Qualified Code(s): E11.8 - Type 2 diabetes mellitus with unspecified complications Assessment/Plan see problem list
[2017-07-31] MEDS: ZOLPIDEM TARTRATE 5 MG TABLET PO PRN (21:46)
[2017-08-01] MEDS: MORPHINE SULFATE 10 MG/1 ML *VIAL IVPUSH PRN ×2 (00:52→07:37)
[2017-08-01] MEDS: CLINDAMYCIN 600MG PREMIX IVPB 600 MG/50 ML BAG IVPB SCH ×2 (01:23→10:59)
--- NOTE | 2017-08-01 10:44 | PN ---
Progress Note, Physician Chief Complaint: right axillary hidradenitis History of Present Illness: 46 yo female with PMH DM type 2 presents with an abscess on her right axilla. She states that it started as what she thought was a "pimple" 2 weeks ago but yesterday became much larger, inflamed and red. It was drained. her range of motion is greatly improved. Shas been elevating her arm. She denies fever and chills and slept well overnight. no other complaints. - Current Medication List Current Medications: Active Medications Acetaminophen (Tylenol -) 650 mg PO Q6H PRN PRN Reason: PAIN LEVEL 1-3 Acetaminophen/Butalbital/Caffeine (Fioricet -) 1 tablet PO Q6H PRN PRN Reason: migraine Gabapentin (Neurontin -) 100 mg PO DAILY [facility] Last Admin: 07/31/17 09:26 Dose: 100 mg Heparin Sodium (Porcine) (Heparin -) 5,000 unit SQ BID [facility] Last Admin: 07/31/17 21:38 Dose: 5,000 unit Clindamycin Phosphate (Cleocin 600 Mg Premix Ivpb -) 600 mg in 50 mls @ 100 mls /hr IVPB Q8H-IV [facility] Last Admin: 08/01/17 01:23 Dose: 100 mls/hr Lactobacillus Acidophilus (Bacid -) 1 tab PO DAILY [facility] Last Admin: 07/31/17 09:26 Dose: 1 tab Morphine Sulfate (Morphine Injection -) 2 mg IVPUSH Q6H PRN PRN Reason: PAIN LEVEL 7 - 10 Last Admin: 08/01/17 07:37 Dose: 2 mg Oxycodone HCl (Roxicodone -) 5 mg PO Q4H PRN PRN Reason: PAIN LEVEL 4 - 6 Last Admin: 07/31/17 19:58 Dose: 5 mg Topiramate (Topamax -) 25 mg PO BID [facility] Last Admin: 07/31/17 21:37 Dose: 25 mg Zolpidem Tartrate (Ambien -) 5 mg PO HS PRN PRN Reason: INSOMNIA Last Admin: 07/31/17 21:46 Dose: 5 mg - Objective Vital Signs: Vital Signs Temperature 98.0 F 08/01/17 06:00 Pulse Rate 74 08/01/17 06:00 Respiratory Rate 20 08/01/17 06:00 Blood Pressure 110/72 08/01/17 06:00 O2 Sat by Pulse Oximetry (%) 98 08/01/17 03:11 Vital Signs Period Temp Pulse Resp BP Sys/Momin Pulse Ox Last 24 Hr 98.0 F-98.2 F 20-107 20-20 95-110/56-72 98-98 Constitutional: Yes: Well Nourished, No Distress, Calm Eyes: Yes: Conjunctiva Clear, EOM Intact HENT: Yes: Atraumatic, Normocephalic Neck: Yes: Supple, Trachea Midline Cardiovascular: Yes: Regular Rate and Rhythm, S1, S2. No: Murmur Respiratory: Yes: Regular, CTA Bilaterally Gastrointestinal: Yes: Normal Bowel Sounds, Soft. No: Tenderness Wound/Incision: Yes: Unapproximated (3 right axilla cruciate incisions.) Neurological: Yes: Alert, Oriented Psychiatric: Yes: Alert, Oriented Labs: CBC, BMP 07/31/17 07:51 07/31/17 07:51 Problem List - Problems (1) Hidradenitis suppurativa of right axilla Assessment/Plan: 46yo female MMP presents with right arm axiliary abscess s/p I&D of abscesses, erythema is nearly completely resolved, WBC now normal, she is afebrile, motion is normal. may be discharges with VNS daily local wound care Wound measurements: three crutiate incisions [id number] Dressing instructions: 1/2" iodoform. 4X4 gauze pads and sponges, kerlex and coban and tape IV antibiotics per ID right arm elevation glycemic control adequate analgesia Shower ad suyapa. if possible follow-up is detailed in discharge plan Code(s): L73.2 - HIDRADENITIS SUPPURATIVA (2) Cellulitis of right arm Code(s): L03.113 - CELLULITIS OF RIGHT UPPER LIMB (3) Abscess Code(s): L02.91 - CUTANEOUS ABSCESS, UNSPECIFIED (4) Diabetes Code(s): E11.9 - TYPE 2 DIABETES MELLITUS WITHOUT COMPLICATIONS Qualifiers: Diabetes mellitus type: type 2 Diabetes mellitus complication status: with unspecified complications Diabetes mellitus intermediate insulin use: without intermediate project manager use Qualified Code(s): E11.8 - Type 2 diabetes mellitus with unspecified complications (5) Lumbar radiculopathy Code(s): M54.16 - RADICULOPATHY, LUMBAR REGION (6) Peripheral edema Code(s): R60.9 - EDEMA, UNSPECIFIED
--- NOTE | 2017-08-01 10:49 | PN ---
Progress Note (short form) - Note Progress Note: minimal arm discomfort Vital Signs Period Temp Pulse Resp BP Sys/Momin Pulse Ox Last 24 Hr 98.0 F-98.2 F 20-107 20-20 95-110/56-72 98-98 arm much improved s/p drainage yesterday erythema is resolved , no fluctuance or induration still some purulent drainage CBC, BMP 07/31/17 07:51 07/31/17 07:51 a/p MRSA abscess with cellulitis- continue clindamycin, surgical f/u ongoing, cellulitis much improved can switch to po clindamycin 300 tid with po bacid needs VNS and surgical f/u as outpt Problem List - Problems (1) Hidradenitis suppurativa of right axilla Code(s): L73.2 - HIDRADENITIS SUPPURATIVA (2) Cellulitis of right arm Code(s): L03.113 - CELLULITIS OF RIGHT UPPER LIMB
[2017-08-01] MEDS: GABAPENTIN 100 MG CAPSULE (FP) PO SCH (10:58)
[2017-08-01] MEDS: HEPARIN NA (PORCINE) 5,000 UNITS/ML 1ML VIAL SQ SCH (10:58)
[2017-08-01] MEDS: TOPIRAMATE 25 MG TABLET (FP) PO SCH (10:58)
[2017-08-01] MEDS: LACTOBACILLUS ACIDOPHILUS 1 EACH TAB (FP) PO SCH (10:58)
--- NOTE | 2017-08-01 11:26 | DS ---
Physical Examination Vital Signs: Vital Signs Temperature 98.0 F 08/01/17 06:00 Pulse Rate 74 08/01/17 06:00 Respiratory Rate 20 08/01/17 06:00 Blood Pressure 110/72 08/01/17 06:00 O2 Sat by Pulse Oximetry (%) 98 08/01/17 03:11 Constitutional: Yes: Well Nourished, No Distress, Calm Cardiovascular: Yes: Regular Rate and Rhythm Respiratory: Yes: Regular Gastrointestinal: Yes: Normal Bowel Sounds, Soft Musculoskeletal: Yes: WNL Extremities: Yes: Erythema (RUE) Edema: Yes (RUE non pitting) Peripheral Pulses WNL: Yes Wound/Incision: Yes: Dressing Dry and Intact Neurological: Yes: Alert, Oriented Psychiatric: Yes: Alert, Oriented Labs: CBC, BMP 07/31/17 07:51 07/31/17 07:51 Discharge Summary Reason For Visit: CELLULITIS OF RIGHT UPPER EXTREMITY,ABSCESS Current Active Problems Abscess (Acute) Cellulitis of right arm (Acute) Hidradenitis suppurativa of right axilla (Acute) Hospital Course: Postoperative instructions: You had a incision and drainage of right axilla hidradenitis on 07/[address] Kamron Smith of [facility]. Activity: Resume your usual activities gradually, but no heavy exertion or lifting more than 10-15 pounds for 4-6 weeks. Daily dressing as detailed. Eat lightly at first, but advance to your usual diet as tolerated. Pain: For pain, you may use and alternate Tylenol (acetaminophen) and/or ibuprofen every 6 hours each as needed; this means that you can take one OR the other at 3-hour intervals. If you are prescribed a Tylenol/narcotic combination for severe pain, use it instead of plain Tylenol as needed and switch back when your pain starts decreasing. Do not take more than 4000mg of acetaminophen in a day. Take medications as prescribed or indicated on the labeling. Follow-up: Call Dr. Smith' office at [phone] to make your postop appointment (Monday 2 weeks after surgery as advised). Clinic is held in the [facility] on the first floor of [facility]. Call the office if you have: * increasing pain not responsive to pain medication * fever of 101F or higher * unusual or increasing bleeding or drainage from wounds * increasing redness or swelling at wound sites Also, see your primary medical doctor within 1-2 weeks. Condition: Stable - Instructions Diet, Activity, Other Instructions: Postoperative instructions: You had a incision and drainage of right axilla hidradenitis on 07/[address] Kamron Smith of [facility]. Activity: Resume your usual activities gradually, but no heavy exertion or lifting more than 10-15 pounds for 4-6 weeks. Daily dressing as detailed. Eat lightly at first, but advance to your usual diet as tolerated. Pain: For pain, you may use and alternate Tylenol (acetaminophen) and/or ibuprofen every 6 hours each as needed; this means that you can take one OR the other at 3-hour intervals. If you are prescribed a Tylenol/narcotic combination for severe pain, use it instead of plain Tylenol as needed and switch back when your pain starts decreasing. Do not take more than 4000mg of acetaminophen in a day. Take medications as prescribed or indicated on the labeling. Follow-up: Call Dr. Smith' office at [phone] to make your postop appointment (Monday 2 weeks after surgery as advised). Clinic is held in the [facility] on the first floor of [facility]. Call the office if you have: * increasing pain not responsive to pain medication * fever of 101F or higher * unusual or increasing bleeding or drainage from wounds * increasing redness or swelling at wound sites Also, see your primary medical doctor within 1-2 weeks. Referrals: Frederick Wilkerson [Primary Care Provider] - Disposition: VNS/HOME HEALTH CARE - Home Medications Comprehensive Discharge Medication List: Ambulatory Orders Gabapentin 100 mg PO DAILY 06/19/17 Zolpidem Tartrate [Ambien] 0 mg PO HS 06/20/17 Acetaminophen/Caffeine/Butalb [Fioricet -] 1 tablet PO Q6H PRN tablet MDD 4 09/03 Sumatriptan Succinate [Imitrex -] 50 mg PO ONCE tablet 06/21/17 metFORMIN HCL [Glucophage -] 500 mg PO DAILY@0700 tablet 06/21/17 Clindamycin [Cleocin -] 300 mg PO TID #21 capsule 08/01/17 Lactobacillus Acidophilus [Bacid -] 1 tab PO DAILY #30 tab 08/01/17 Topiramate [Topamax -] 25 mg PO BID #60 tablet 08/01/17
[2017-08-01 13:30] VITALS: BP 90/57; PULSE 86; TEMP 97.9
== END 2017-08-01 14:35 | disposition home health service (06) | DRG 385 ==
LOC: JER 09:20 → INTOOBSV 15:52 → JERBED 15:52 → J6S 18:09 → OBSVTOIN 21:56
PROVIDERS: ADMIT Family Medicine; ATTEND Family Medicine
PROC: 0X940ZX Drainage of Right Axilla, Open Approach, Diagnostic (ICD-10-PCS; principal; 2017-07-29)
DX: L73.2 Hidradenitis suppurativa (principal); E11.9 Type 2 diabetes mellitus without complications; G43.909 Migraine, unspecified, not intractable, without status migrainosus; F41.9 Anxiety disorder, unspecified; Z72.0 Tobacco use; M54.16 Radiculopathy, lumbar region; R60.9 Edema, unspecified; L03.113 Cellulitis of right upper limb
CPT/HCPCS: 36415; 76882; 80048; 80053; 82962; 83036; 83735; 84100; 85025; 87040; 87070; 87186; 87205; 93005; 93010; 99285-25; G0378; J1644

== ENCOUNTER 2018-04-07 19:05 | Emergency (ER) | payer OTHER ==
[2018-04-07 19:36] VITALS: BP 112/68; PULSE 116; TEMP 98.3; BMI 21.4
--- NOTE | 2018-04-07 19:51 | PDOC ---
Attending Attestation - HPI HPI: 04/07/18 19:56 The patient is a 47 year old female, with a significant PMH of alcohol abuse for the past four years and prescription drug abuse who presents to the emergency department with lethargy for the past week. As per family at bedside, patient has not been eating over the past week. Unknown when patient had her last alcoholic beverage. Patient has never been to detox in the past. Allergies: NKA Past surgical history: None reported. Social history: None reported. - Physicial Exam PE: 04/07/18 21:00 ADULT EXAM GENERAL: Awake, alert, and fully oriented, in no acute distress HEAD: No signs of trauma EYES: PERRLA, EOMI, sclera anicteric, conjunctiva clear (+) Pupils are dilated 4mm bilaterally. ENT: Auricles normal inspection, hearing grossly normal, nares patent, oropharynx clear without exudates. Moist mucosa NECK: Normal ROM, supple, no lymphadenopathy, JVD, or masses LUNGS: Breath sounds equal, clear to auscultation bilaterally. No wheezes, and no crackles HEART: Regular rate and rhythm, normal S1 and S2, no murmurs, rubs or gallops ABDOMEN: Soft, nontender, normoactive bowel sounds. No guarding, no rebound. No masses EXTREMITIES: Normal range of motion, no edema. No clubbing or cyanosis. No cords, erythema, or tenderness. Reflexes were equal throughout. NEUROLOGICAL: Cranial nerves II through XII grossly intact. SKIN: Warm, Dry, normal turgor, no rashes or lesions noted. <Adriana Marrero - Last Filed: 04/07/18 21:00> - Resident Resident Name: Priscilla Stokes - ED Attending Attestation I have performed the following: I have examined & evaluated the patient, The case was reviewed & discussed with the resident, I agree w/resident's findings & plan - Medical Decision Making 04/07/18 21:02 Pt is alert and refusing detox. She is interacting with her and 21 yo son. She has a 10yo and 6yo who are both being cared for by the grandparents. 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 She also mixes her pain meds and psych meds with ETOH, and states that she sometimes buys meds from the street and it is unclear what she is taking.. Exam normal; labs pending. 04/07/18 21:05 Pt is anemic; microcytic anemia. 04/07/18 21:[address] normal; CXR normal. 04/07/18 22:24 Dr. Monge agrees to accept the patient, 04/07/18 23:03 Patient Name: BERNADETTE SALDANA THIS IS A PRELIMINARY REPORT FROM [facility] [employer]PER[employer] EXAM: CT Head wo IMAGES: 138 EXAM DATE AND TIME: 2018-04-07 20:26:06 HISTORY: 47 year old woman: Altered mental status. COMPARISON: None TECHNIQUE: Non-contrast axial images were obtained. Coronal and sagittal images were also generated. FINDINGS: The cerebral sulci and ventricles are normal in size. There are no intracranial hemorrhages, extra-axial fluid collections or evidence of an intra-axial mass lesion. There is no evidence of an acute or chronic ischemic lesion at this time. Orbital and petrous structures, cerebellopontine angles, and posterior fossa appear unremarkable. The paranasal and mastoid sinuses are clear. IMPRESSION: Normal CT scan of the head. No intracranial hemorrhages, extra- axial fluid collections or intra-axial mass lesion. THIS DOCUMENT HAS BEEN ELECTRONICALLY SIGNED 04/08/18 22:41 Pt will be going to the female alcohol detox at [address] [place] [address] Monge. <Soledad Smith - Last Filed: 04/08/18 22:42>
[2018-04-07] MEDS ORDERED: FOLIC ACID INJECTION - 1 MG, THIAMINE HCL 100 MG, MULTIVIT INJECTION ADULT 10 ML in SOD... IVPB ONE (19:53)
--- NOTE | 2018-04-07 19:59 | PDOC ---
History of Present Illness - General Chief Complaint: Altered Mental Status Stated Complaint: EVALUATION Time Seen by Provider: 04/07/18 19:41 - History of Present Illness Initial Comments: 04/07/18 19:58 47 year old with history of alcohol abuse and prescription medication abuse who presents with lethargy for 1 week and unresponsiveness that started just prior to arrival. Patient was found by son with pill bottles next to her, she does not know the names. He does not recall the name of these medications. He notes that 0930 normal doing homw chores 1400 patient found to be much less responsive and lethargic than normal intoxication episodes. In ED patient still not at baseline per family. Past History - Past Medical History Allergies/Adverse Reactions: Allergies Allergy/AdvReac Type Severity Reaction Status Date / Time No Known Allergies Allergy Verified 07/28/17 09:38 Home Medications: Ambulatory Orders Gabapentin 100 mg PO DAILY 06/19/17 Zolpidem Tartrate [Ambien] 0 mg PO HS 06/20/17 Acetaminophen/Caffeine/Butalb [Fioricet -] 1 tablet PO Q6H PRN tablet MDD 4 09/03 Sumatriptan Succinate [Imitrex -] 50 mg PO ONCE tablet 06/21/17 metFORMIN HCL [Glucophage -] 500 mg PO DAILY@0700 tablet 06/21/17 Clindamycin [Cleocin -] 300 mg PO TID #21 capsule 08/01/17 Lactobacillus Acidophilus [Bacid -] 1 tab PO DAILY #30 tab 08/01/17 Topiramate [Topamax -] 25 mg PO BID #60 tablet 08/01/17 Asthma: No Cancer: No Cardiac Disorders: No COPD: No Diabetes: Yes (hypoglycemia) Disorders: Yes (POLYCYSTIC OVARY DISEASE) HTN: No Psychiatric Problems: Yes Seizures: No Thyroid Disease: No - Surgical History Abdominal Surgery: Yes (UMBILICAL HERNIA REPAIR) Gastric Stapling: Yes (gastric bypass in 2007) GI Surgery: Yes (couple of abdominal surgeries for and hernia repairs) - Reproductive History (#): 5 Para: 3 Polycystic Ovaries: Yes Tubal Ligation: No - Immunization History Immunization Up to Date: Yes - Suicide/Smoking/Psychosocial Hx Smoking Status: No Smoking History: Current every day smoker Have you smoked in the past 12 months: Yes Number of Cigarettes Smoked Daily: 20 Information on smoking cessation initiated: No 'Breaking Loose' booklet given: 07/28/17 Hx Alcohol Use: Yes Drug/Substance Use Hx: No Substance Use Type: None Hx Substance Use Treatment: No *Physical Exam - Vital Signs Last Vital Signs Temp Pulse Resp BP Pulse Ox 98.3 F 116 H 18 112/68 97 04/07/18 19:31 04/07/18 19:31 04/07/18 19:31 04/07/18 19:31 04/07/18 19:31 - Physical Exam Comments: 04/07/18 20:02 pupils 3mm, unreactive to light AOx3, flat affect, with dilated pupils, able to converse normally, but speaks brief sentences CTAB, RRR No abdominal tenderness to palpation 04/07/18 20:11 ED Treatment Course - LABORATORY CBC & Chemistry Diagram: 04/07/18 20:24 04/07/18 20:24 - RADIOLOGY Radiology Studies Ordered: Category Date Time Status HEAD CT WITHOUT CONTRAST [CT] Stat CT Scan 04/07/18 19:55 Ordered CHEST X-RAY PORTABLE* [RAD] Stat Radiology 04/07/18 19:51 Ordered Medical Decision Making - Medical Decision Making 04/07/18 20:03 PCP: Rhea DDX: ingestion vs intracranial bleed vs PNA< UTI vs electrolyte vs hypoglycemia Patient on: Gabapentin 100 mg PO DAILY 06/19/17 Zolpidem Tartrate [Ambien] 0 mg PO HS 06/20/17 Acetaminophen/Caffeine/Butalb [Fioricet -] 1 tablet PO Q6H PRN tablet MDD 4 09/03 Sumatriptan Succinate [Imitrex -] 50 mg PO ONCE tablet 06/21/17 metFORMIN HCL [Glucophage -] 500 mg PO DAILY@0700 tablet 06/21/17 CXR: unremarkable Head CT; ngeative Labs: negative K: 3.2 04/07/18 22:45 [facility] will accepted patient. *DC/Admit/Observation/Transfer Diagnosis at time of Disposition: Altered mental status - Discharge Dispostion Disposition: HOME Condition at time of disposition: Stable Decision to Admit order: No - Referrals - Patient Instructions Printed Discharge Instructions: DI for Alcohol Abuse, DI for Altered Mental Status Additional Instructions: You were seen in the ED for complaints of altered mental status. In the ED you were evaluated with labwork and imaging. Your results were unremarkable. We advise that you be seen at [facility]. Security will escort you to this facility. You are advised to follow up with your Primary Care Physician within 1 week. Return to the ED immediately if you experience loss of consciousness, headaches , nausea, chest pain, shortness of breath, fever, repeated substance abuse, intoxication or lethargy. - Post Discharge Activity
[2018-04-07 20:36] LABS: BASO % 1.5 % (0-2.0); HEMATOCRIT 34.3 % (32.4-45.2); HEMOGLOBIN 10.9 GM/dL (10.7-15.3); LYMPH % 19.8 % (8-40); MCH 23.7 pg (25.7-33.7); MCHC 31.8 g/dl (32.0-36.0); MEAN CELL VOLUME 74.5 fl (80-96); MEAN PLT VOLUME 8.2 fl (7.5-11.1); MONO % 7.6 % (3.8-10.2); NEUT % 71.1 % (42.8-82.8); RDW 26.1 % (11.6-15.6); WHITE BLOOD COUNT 7.7 K/mm3 (4.0-10.0)
[2018-04-07 20:56] LABS: INR 1.06 (0.83-1.09); PROTHROMBIN TIME (PATIENT) 12.5 SEC (9.7-13.0)
[2018-04-07 20:59] LABS: ACTIVATED PTT 28.1 SECONDS (25.2-36.5)
[2018-04-07 21:38] LABS: ALK PHOS 91 U/L (45-117); ANION GAP 10 MMOL/L (8-16); BILIRUBIN,TOTAL 0.2 mg/dL (0.2-1); BLOOD UREA NITROGEN 7 mg/dL (7-18); CALCIUM 8.4 mg/dL (8.5-10.1); CHLORIDE 100 mmol/L (98-107); CO2 29 mmol/L (21-32); CREATININE 2.4 mg/dL (0.55-1.3); GLUCOSE,RANDOM 165 mg/dL (74-106); POTASSIUM 3.2 mmol/L (3.5-5.1); SGOT/AST 20 U/L (15-37); SGPT/ALT 16 U/L (13-61); SODIUM 139 mmol/L (136-145); TOT PROT 6.4 g/dl (6.4-8.2)
[2018-04-07] MEDS ORDERED: POTASSIUM CHLORIDE TABS 20 MEQ TABLET.ER (FP) PO ONE ×2 (21:42→22:25)
[2018-04-07 21:49] LABS: URINE APPEARANCE SLCLOUDY; URINE BILIRUBIN NEGATIVE (<2.0 mg/dL); URINE COLOR LTYELLOW; URINE GLUCOSE (UA) NEGATIVE (NEGATIVE); URINE KETONE 1+ (NEGATIVE); URINE LEUK ESTERASE NEGATIVE (NEGATIVE); URINE NITRITE NEGATIVE (NEGATIVE); URINE PROTEIN NEGATIVE (NEGATIVE); URINE UROBILINOGEN NEGATIVE mg/dL (0.2-1.0)
[2018-04-07 22:02] LABS: COCAINE, UR NEGATIVE ng/ml (CUTOFF=300); METHADONE, UR NEGATIVE ng/ml (CUTOFF=300); OPIATES, URI NEGATIVE ng/ml (CUTOFF=300); PHENCYCLIDINE,URINE NEGATIVE ng/ml (CUTOFF=25); URINE AMPHETAMINES NEGATIVE ng/ml (CUTOFF=500); URINE BARBITURATES NEGATIVE ng/ml (CUTOFF=200); URINE BENZODIAZEPINES NEGATIVE ng/ml (CUTOFF=200)
[2018-04-07 22:35] LABS: PLATELET ESTIMATE ADEQUATE
== END 2018-04-07 23:03 | disposition home or self-care (01) ==
LOC: JER 19:05
PROC: 3E033GC Introduction of Other Therapeutic Substance into Peripheral Vein, Percutaneous Approach (ICD-10-PCS; principal; 2018-04-07)
DX: R41.82 Altered mental status, unspecified (principal); F10.10 Alcohol abuse, uncomplicated; F19.10 Other psychoactive substance abuse, uncomplicated; E11.9 Type 2 diabetes mellitus without complications; Z79.84 Long term (current) use of oral hypoglycemic drugs; E28.2 Polycystic ovarian syndrome; F99 Mental disorder, not otherwise specified; Z98.84 Bariatric surgery status
CPT/HCPCS: 36415; 70450-TC; 71045-TC-FY; 80053; 80307; 81003; 82550; 82553; 82962; 83605; 84484; 84703; 85025; 85610; 85730; 86850; 86900; 86901; 87086; 96365; 96366; 99283-25; J7030